=== PATIENT | male | born 1945 | race Caucasian/White ===

== ENCOUNTER → 2016-11-27 | Outpatient (CLI) | payer BC ==
[~2016-11-27] MED LIST: ASPI325T39 PO; ATOR-26 PO; CLOP1TAB15 PO; FAMO40TA6 PO; FINA5TAB PO; FLUT0.0529 NAE; ISOS60TA25 PO; LEVO25TA5 PO; LISI-725 PO; METO1TAB69 PO; NTRGSL/4 UT; TAMS0.4C59 PO; hctz PO
[2016-11-27 12:27] LABS: BASO % 0.3 %; BASO ABS # 0.02 K/uL (0-0.2); COMPLETE YES; EOS % 2.9 %; HEMATOCRIT 39.8 % (42-52); IG% 0.3 %; LYMPH % 27.3 %; LYMPH ABS # 1.62 K/uL (1.2-3.4); MEAN CELL VOLUME 85.2 fL (80-100); MEAN CORPUSCULAR HEMOGLOBIN 28.5 pg (25-34); MEAN CORPUSCULAR HGB CONC 33.4 g/dl (32-36); MEAN PLATELET VOLUME 10.3 fL (7.4-10.4); MONO % 10.1 %; NEUT % 59.1 %; PLATELET COUNT 168 K/uL (130-400); RED BLOOD COUNT 4.67 M/uL (4.7-6.1); WHITE BLOOD COUNT 5.93 K/uL (4.8-10.8)
[2016-11-27 12:59] LABS: BLOOD UREA NITROGEN 15 mg/dl (7-18); BUN/CREATININE RATIO 13.5 (10-20); CARBON DIOXIDE 29 mmol/L (21-32); CHLORIDE 106 mmol/L (98-107); GLUCOSE 114 mg/dl (70-99); POTASSIUM 3.6 mmol/L (3.5-5.1); SODIUM 143 mmol/L (136-145)
== END | disposition home or self-care (01) ==
LOC: C.LABBFT 07:59
PROVIDERS: ATTEND Internal Medicine Geriatric Medicine
DX: I10 Essential (primary) hypertension (principal); I42.9 Cardiomyopathy, unspecified; R73.9 Hyperglycemia, unspecified; E03.9 Hypothyroidism, unspecified; R25.1 Tremor, unspecified; I67.2 Cerebral atherosclerosis

== ENCOUNTER → 2016-12-11 | Outpatient (CLI) | payer BC ==
[~2016-12-11] MED LIST changes: +OPTIRAY 320 IV PRN
--- NOTE | 2016-12-11 13:46 | DIAGNOSTIC IMAGING REPORT ---
CT ABD/PELVIS IV AND ORAL CONT CLINICAL HISTORY: Generalized abdominal pain COMPARISON STUDY: 12/04/2013 TECHNIQUE: Following the IV administration of 92 mL of Optiray-320, CT scan of the abdomen and pelvis was performed from the lung bases to the proximal femurs. Images are reviewed in the axial, sagittal, and coronal planes. IV contrast was administered without complication. CT DOSE: 1087.15 mGycm FINDINGS: Lower chest: There is minor basilar atelectasis. Liver: There is hepatic steatosis. There are no focal masses identified. Gallbladder: Surgically after Spleen: Normal in size and attenuation. Pancreas: Unremarkable. Adrenal glands: Unremarkable. Kidneys: There is a 3 cm right renal cyst. Subcentimeter hypodensities in the left kidney likely represent additional cysts Bowel: There are no transition zones indicate bowel obstruction. The appendix appears normal. There is no acute diverticulitis. Peritoneum: There is no free air. There is no ascites. There are postsurgical changes of a ventral hernia repair. There are 2 anterior peritoneal nodules. The largest is located anterior to the transverse colon measuring 12 mm. These were not visualized the prior study and are indeterminate. Vasculature: There is a 3.6 cm abdominal aortic aneurysm which extends to just below the origin of the right renal artery. More distally, there is a second 34 mm infrarenal abdominal aortic aneurysm. 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 Adenopathy: None. Pelvic viscera: There is bladder wall thickening. There is significant prostatic enlargement (68 mm). Skeletal structures: No destructive osseous lesions are seen. IMPRESSION: 1. No evidence of bowel obstruction. No evidence of free air 2. Surgically absent gallbladder 3. Normal appendix 4. Abdominal aortic aneurysms, measuring up to 36 mm 5. Bladder wall thickening and prostate enlargement 6. Interval development of indeterminate peritoneal nodules, the largest of which measures 12 mm Electronically signed by: Best Lombardo M.D. 12/11/2016 1:44 PM Dictated Date/Time: 12/11/2016 1:36 PM
== END | disposition home or self-care (01) ==
LOC: C.CTS 13:14
PROVIDERS: ATTEND Internal Medicine Geriatric Medicine
DX: R10.9 Unspecified abdominal pain (principal)

== ENCOUNTER → 2016-12-12 | Outpatient (CLI) | payer BC ==
[~2016-12-12] MED LIST changes: -OPTIRAY 320 IV PRN
[2016-12-12 12:21] LABS: BLOOD UREA NITROGEN 15 mg/dl (7-18); BUN/CREATININE RATIO 13.2 (10-20); CALCIUM 8.8 mg/dl (8.5-10.1); CARBON DIOXIDE 27 mmol/L (21-32); CHLORIDE 103 mmol/L (98-107); GLUCOSE 115 mg/dl (70-99); POTASSIUM 3.6 mmol/L (3.5-5.1); SODIUM 140 mmol/L (136-145)
== END | disposition home or self-care (01) ==
LOC: C.LABBFT 08:09
PROVIDERS: ATTEND Internal Medicine Geriatric Medicine
DX: I10 Essential (primary) hypertension (principal)

== ENCOUNTER 2016-12-23 08:51 | Day surgery (SDC) | payer BC ==
[~2016-12-23] VITALS: Ht 182.9 cm; Wt 109.0 kg
[~2016-12-23 08:51] MED LIST changes: -LEVO25TA5 PO; -hctz PO
[2016-12-23 09:07] VITALS: BP 131/79; PULSE 67; TEMP 36.8; O2SAT 97; Ht 182.9 cm; Wt 109.0 kg
[2016-12-23] MEDS ORDERED: LEVO25TA5 PO (09:37)
[2016-12-23] MEDS ORDERED: hctz PO (09:38)
[2016-12-23 09:43] LABS: PLATELET COUNT 197 K/uL (130-400)
[2016-12-23 09:53] LABS: INR 1.1 (0.9-1.1); PROTHROMBIN TIME (PATIENT) 11.3 SECONDS (9.0-12.0)
--- NOTE | 2016-12-23 10:58 | Discharge Instructions ---
Discharge Instructions Procedure Procedure Date: Dec 23, 2016. Reason for visit: Peritoneum Mass. Discharge Discharge Date: Dec 23, 2016. Discharge Diagnosis: peritoneal nodule Instructions Activity Recommendations: No limitations Return to School/Work: no limitations Recommended Home Diet: Resume Previous Diet Provider Instructions: The patient was brought to ultrasound for fine-needle aspiration of a small ( 11mm) peritoneal nodule seen by CT. The nodule was not visualized by ultrasound. Attempting the aspiration under CT was discussed with the patient and he declined to proceed at this time. Allergies Coded Allergies: No Known Allergies (Verified , UNKNOWN, 12/23/16) Annette Burns Recommendations: Call your doctor if: * Temperature above 101 degrees * Pain not relieved by pain medicine ordered * There is increased drainage or redness from any incision * You have any unanswered questions or concerns. Your Doctors Instructions noted above were prepared by provider Trey Wiggins. Patient Signature Section: Patient Instructions Signature Page Joey Levine Patient (or Guardian) Signature/Date: I have read and understand the instructions given to me by my caregivers. Caregiver/RN/Doctor Signature/Date: The above-named patient and/or guardian has received patient instructions on this date. + Original Patient Signature Page (only) stays with chart. Please make copy for patient.
--- NOTE | 2016-12-23 11:21 | DIAGNOSTIC IMAGING REPORT ---
ULTRASOUND ABDOMEN LIMITED CLINICAL HISTORY: Peritoneal nodules. Ultrasound in preparation for fine-needle aspiration. COMPARISON STUDY: Abdominal CT dated 12/11/2016. FINDINGS: Real-time grayscale sonography of the ventral abdomen is performed in an attempt to localize the 11 mm peritoneal nodule seen by CT for fine-needle aspiration. The peritoneal implant could not be identified by ultrasound and aspiration was deferred. Fine-needle aspiration in CT was offered to the patient. After discussing the procedure with the patient a CT guided aspiration was declined. IMPRESSION: The peritoneal nodule was not visualized by ultrasound and the procedure was deferred. See above. Electronically signed by: Trey Wiggins M.D. 12/23/2016 11:19 AM Dictated Date/Time: 12/23/2016 11:16 AM
== END 2016-12-23 11:07 | disposition home or self-care (01) ==
LOC: C.ACU 08:51
PROVIDERS: ATTEND Internal Medicine Geriatric Medicine
DX: K66.8 Other specified disorders of peritoneum (principal); Z00.00 Encounter for general adult medical examination without abnormal findings

== ENCOUNTER → 2017-01-14 | Outpatient (CLI) | payer BC ==
[~2017-01-14] MED LIST changes: +LEVO25TA5 PO; +METO100T44 PO; -METO1TAB69 PO; +hctz PO
[2017-01-14 12:45] LABS: BASO % 0.5 %; BASO ABS # 0.03 K/uL (0-0.2); COMPLETE YES; EOS % 2.9 %; HEMATOCRIT 39.8 % (42-52); IG% 0.2 %; LYMPH ABS # 1.91 K/uL (1.2-3.4); MEAN CELL VOLUME 85.2 fL (80-100); MEAN CORPUSCULAR HEMOGLOBIN 29.3 pg (25-34); MEAN CORPUSCULAR HGB CONC 34.4 g/dl (32-36); MEAN PLATELET VOLUME 10.3 fL (7.4-10.4); MONO % 5.7 %; NEUT % 59.7 %; PLATELET COUNT 167 K/uL (130-400); RED BLOOD COUNT 4.67 M/uL (4.7-6.1); WHITE BLOOD COUNT 6.17 K/uL (4.8-10.8)
--- NOTE | 2017-01-21 13:01 | CODING QUERY MEDICAL NECESSITY ---
CQSUPPORTING DIAGNOSIS NEEDED A supporting diagnosis is required for the test/procedure performed on this patient in order for us to be reimbursed by the patient's insurance. Please provide a supporting diagnosis for the following test/procedure listed below next to the test name along with your signature. *If there is no additional diagnosis for this patient that would support the following test/procedure please document that below next to the test/procedure. Test(s)/Procedure(s) that require a supporting diagnosis: DOS 01/14/17 PROSTATE SPECIFIC TUMOR ANTIGEN CARCINOEMBRYONIC ANTIGEN Provider Signature: Date: Thank you Elda Zuleta Health Information Management Once completed, please kindly fax back to [phone] For questions please call [phone]
== END | disposition home or self-care (01) ==
LOC: C.LABBFT 08:22
PROVIDERS: ATTEND Internal Medicine Hematology & Oncology
DX: R19.01 Right upper quadrant abdominal swelling, mass and lump (principal)

== ENCOUNTER → 2017-01-24 | Outpatient (CLI) | payer BC ==
[~2017-01-24] MED LIST changes: +OPTIRAY 320 IV PRN
--- NOTE | 2017-01-24 14:01 | DIAGNOSTIC IMAGING REPORT ---
CT ABD/PELVIS IV AND ORAL CONT CLINICAL HISTORY: Abdominal pain. Abdominal mass. COMPARISON STUDY: 12/11/2016 TECHNIQUE: Following the IV administration of 118 mL of Optiray-320, CT scan of the abdomen and pelvis was performed from the lung bases to the proximal femurs. Images are reviewed in the axial, sagittal, and coronal planes. IV contrast was administered without complication. CT DOSE: FINDINGS: Lower chest: There are minor dependent atelectatic changes. There is a small pericardial effusion. Liver: There is mild hepatic steatosis. There is stable 5 mm hypodensity within the left hepatic lobe.. The portal vein appears patent. Gallbladder: Surgically absent Spleen: There are thin capsular calcifications. No splenic masses are visualized. Pancreas: Unremarkable. Adrenal glands: Unremarkable. Kidneys: No solid renal masses are visualized. There are bilateral renal cysts the largest of which is located on the right measuring 3 cm. Bowel: There are no transition zones indicate bowel obstruction. There is no evidence of acute diverticulitis. There are postsurgical changes of a ventral hernia repair. The appendix appears normal Peritoneum: There is no free air. There is no ascites. There is a persistent 12 mm anterior peritoneal nodule. A second 5 mm anterior peritoneal nodule is also stable. There is a 3.7 cm abdominal aortic aneurysm which extends to just below the right renal artery. There is a second 34 mm infrarenal abdominal aortic aneurysm. 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 Vasculature: The abdominal aorta is normal in course and caliber. Adenopathy: None. Pelvic viscera: The prostate is enlarged measuring 7 cm. Skeletal structures: No destructive osseous lesions are seen. IMPRESSION: 1. No evidence of bowel obstruction. No evidence of free air 2. Normal appendix 3. Infrarenal abdominal aortic aneurysms 4. Prostamegaly 5. Persistent indeterminate anterior peritoneal nodules, the largest of which measures 12 mm. Electronically signed by: Best Lombardo M.D. 01/24/2017 1:58 PM Dictated Date/Time: 01/24/2017 1:51 PM
--- NOTE | 2017-01-24 14:14 | DIAGNOSTIC IMAGING REPORT ---
CHEST CT WITH CONTRAST CT DOSE: 1673.50 mGy.cm HISTORY: Abnormal CT. Follow-up. ABDOMINAL MASS CR=1.1 ON 12/12/2016 TECHNIQUE: Multiaxial CT images of the chest were performed following the intravenous administration of contrast. COMPARISON: Chest CTA 12/04/2013. FINDINGS: The central airways are patent. Stable 4 mm nodule within the lingula on image 38. Therefore, this is considered to be benign. Stable 4 mm nodule within the right lower lobe. No new pulmonary nodules. No suspicious lytic or blastic osseous lesions. No mediastinal or hilar lymphadenopathy. No pleural or pericardial effusions. Normal caliber thoracic aorta. The central pulmonary arteries are patent. IMPRESSION: Stable subcentimeter pulmonary nodules which are considered to be benign. Otherwise, no acute process within the chest. Please refer to the dedicated abdominal CT performed same day for further evaluation of the abdominal structures. Electronically signed by: Daniel Rawls M.D. 01/24/2017 2:12 PM Dictated Date/Time: 01/24/2017 1:51 PM
== END | disposition home or self-care (01) ==
LOC: C.CTS 12:23
PROVIDERS: ATTEND Internal Medicine Hematology & Oncology
DX: R19.01 Right upper quadrant abdominal swelling, mass and lump (principal); I71.4 Abdominal aortic aneurysm, without rupture; N40.0 Benign prostatic hyperplasia without lower urinary tract symptoms

== ENCOUNTER → 2017-03-21 | Outpatient (CLI) | payer BC ==
[~2017-03-21] VITALS: Ht 182.9 cm; Wt 109.3 kg
[~2017-03-21] MED LIST changes: -OPTIRAY 320 IV PRN
[2017-03-21 14:28] VITALS: BP 138/78; PULSE 64; Ht 182.9 cm; Wt 109.3 kg
== END | disposition home or self-care (01) ==
LOC: C.NEUR 13:20
PROVIDERS: ATTEND Internal Medicine Pulmonary Disease
DX: G47.30 Sleep apnea, unspecified (principal)

== ENCOUNTER → 2017-05-13 | Outpatient (CLI) | payer BC ==
[~2017-05-13] MED LIST changes: -METO100T44 PO; +METO1TAB69 PO
[2017-05-13 12:26] LABS: BASO % 0.6 %; BASO ABS # 0.03 K/uL (0-0.2); COMPLETE YES; HEMATOCRIT 41.3 % (42-52); IG% 0.2 %; LYMPH % 28.3 %; LYMPH ABS # 1.51 K/uL (1.2-3.4); MEAN CELL VOLUME 87.9 fL (80-100); MEAN CORPUSCULAR HEMOGLOBIN 28.1 pg (25-34); MEAN PLATELET VOLUME 9.9 fL (7.4-10.4); MONO % 9.2 %; NEUT % 58.7 %; PLATELET COUNT 152 K/uL (130-400); WHITE BLOOD COUNT 5.34 K/uL (4.8-10.8)
[2017-05-13 12:41] LABS: ESTIMATED AVERAGE GLUCOSE 126 mg/dl; HA1C FLAG Normal (Normal)
[2017-05-13 15:02] LABS: BLOOD UREA NITROGEN 19 mg/dl (7-18); BUN/CREATININE RATIO 17.5 (10-20); CALCIUM 8.8 mg/dl (8.5-10.1); CARBON DIOXIDE 28 mmol/L (21-32); CHLORIDE 108 mmol/L (98-107); GLUCOSE 104 mg/dl (70-99); POTASSIUM 3.6 mmol/L (3.5-5.1); SODIUM 143 mmol/L (136-145)
[2017-05-13 15:14] LABS: ALKALINE PHOSPHATASE 68 U/L (45-117); ALT/SGPT 23 U/L (12-78); AST/SGOT 16 U/L (15-37); CHOLESTEROL 105 mg/dl (0-200); CHOLESTEROL/HDL RATIO 3.9; FERRITIN 106.5 ng/ml (8.0-388.0); HDL CHOLESTEROL 27 mg/dl; LDL CHOLESTEROL CALCULATED 40 mg/dl; TRIGLYCERIDES 188 mg/dl (0-150); VERY LOW DENSITY LIPOPROT CALC 38 mg/dl
--- NOTE | 2017-05-20 06:58 | CODING QUERY MEDICAL NECESSITY ---
CQSUPPORTING DIAGNOSIS NEEDED A supporting diagnosis is required for the test/procedure performed on this patient in order for us to be reimbursed by the patient's insurance. Please provide a supporting diagnosis for the following test/procedure listed below next to the test name along with your signature. *If there is no additional diagnosis for this patient that would support the following test/procedure please document that below next to the test/procedure. Test(s)/Procedure(s) that require a supporting diagnosis: DOS 05/13/17 VITAMIN D TEST VITAMIN B12 TEST Provider Signature: Date: Thank you Elda Zuleta Health Information Management Once completed, please kindly fax back to [phone] For questions please call [phone]
== END | disposition home or self-care (01) ==
LOC: C.LABBFT 07:36
PROVIDERS: ATTEND Internal Medicine Geriatric Medicine
DX: I10 Essential (primary) hypertension (principal); E78.5 Hyperlipidemia, unspecified; D64.9 Anemia, unspecified; R73.9 Hyperglycemia, unspecified; E03.9 Hypothyroidism, unspecified; G47.30 Sleep apnea, unspecified

== ENCOUNTER → 2017-06-20 | Outpatient (CLI) | payer BC ==
[~2017-06-20] VITALS: Ht 185.4 cm; Wt 109.7 kg
[2017-06-20 13:37] VITALS: BP 155/89; PULSE 70; Ht 185.4 cm; Wt 109.7 kg
== END | disposition home or self-care (01) ==
LOC: C.NEUR 13:18
PROVIDERS: ATTEND Internal Medicine Pulmonary Disease
DX: G47.30 Sleep apnea, unspecified (principal); I42.9 Cardiomyopathy, unspecified; I25.10 Atherosclerotic heart disease of native coronary artery without angina pectoris

== ENCOUNTER → 2017-07-11 | Outpatient (CLI) | payer BC ==
[~2017-07-11] MED LIST changes: +OPTIRAY 320 IV PRN
--- NOTE | 2017-07-11 12:05 | DIAGNOSTIC IMAGING REPORT ---
CT SCAN OF THE ABDOMEN AND PELVIS WITH IV CONTRAST CLINICAL HISTORY: Follow-up peritoneal nodules. COMPARISON STUDY: Abdominal CT scans dated 01/24/2017, 12/11/2016, and 12/04/2013. TECHNIQUE: Following the IV administration of 117 cc of Optiray 320, CT scan of the abdomen and pelvis is performed from the lung bases to the proximal femora. Images are reviewed in the axial, sagittal, and coronal planes. IV contrast was administered without complication. A dose lowering technique was utilized adhering to the principles of ALARA. CT DOSE: 1284.37 mGy.cm FINDINGS: Lung bases: The heart is normal in size and without pericardial effusion. The coronary arteries are densely calcified. The lung bases are clear. Liver: The contrast-enhanced liver is normal in size, contour, and attenuation. There is no intrahepatic biliary ductal dilatation. The hepatic veins and portal veins are patent. A subcentimeter hypodensity in the left lobe seen on image #74 likely represents a tiny cyst but is too small for definitive characterization. Gallbladder: Surgically absent noting clips in the gallbladder fossa. Spleen: Normal in size and attenuation. Capsular calcifications are noted. Pancreas: Unremarkable. Adrenal glands: Unremarkable. Kidneys: The contrast enhanced kidneys demonstrate mild cortical atrophy and are without hydronephrosis. The kidneys enhance symmetrically. A 3.4 cm cyst is noted in the interpolar right kidney. Additional subcentimeter cortical hypodensities also likely represent cysts but are too small for definitive characterization. Abdominal vasculature: There is advanced atherosclerotic calcification of the abdominal aorta. There are fusiform infrarenal aneurysms of the distal abdominal aorta. The more proximal aneurysm as seen on image #192 and measures 3.6 x 3.7 cm. The more distal aneurysm is seen just above the bifurcation and measures 3.7 x 3.4 cm. 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 There is ectasia of the left common iliac artery which measures up to 2.1 cm. Bowel: The small bowel and colon are normal in course and caliber. The appendix is well-visualized and normal. Peritoneum: There is no intraperitoneal free air or abdominal ascites. There is evidence of previous ventral hernia repair. A 1.2 cm low-attenuation nodule is again seen along the ventral aspect of the transverse colon on image #175. A 7 mm nodule is seen in the right upper quadrant anteriorly on image #122. These are similar to previous. No new nodules are identified. Lymphadenopathy: None. Pelvic viscera: The prostate gland is markedly enlarged and heterogeneous, measuring 6.7 cm in transverse diameter. There is median lobe hypertrophy. Although decompressed, the bladder wall appears thickened and trabeculated suggesting chronic outlet obstruction. The seminal vesicles are normal as imaged. Skeletal structures: The skeletal structures are osteopenic. There is mild lumbosacral spondylosis. No lytic or blastic lesions are seen. IMPRESSION: 1. Again seen are 2 nodular foci within the ventral peritoneum. These are unchanged from studies dated 12/11/2016 and 01/24/2017. These nodule are new from 12/04/2013. These nodules are similar in appearance to the patient's gallstones seen on 12/04/2013, and there was interval cholecystectomy between 12/04/2013 and 12/11/2016. These nodules likely represent dropped gallstones. 2. No new peritoneal nodules are identified. 3. No acute infectious or inflammatory findings are seen in the abdomen or pelvis. 4. Fusiform aneurysms of the abdominal aorta are similar to previous. 5. Marked prostatomegaly with evidence of chronic bladder outlet obstruction. 6. Additional findings as above. Electronically signed by: Trey Wiggins M.D. 07/11/2017 12:03 PM Dictated Date/Time: 07/11/2017 11:48 AM
== END | disposition home or self-care (01) ==
LOC: C.CTS 10:42
PROVIDERS: ATTEND Surgery
DX: K66.8 Other specified disorders of peritoneum (principal); Z90.49 Acquired absence of other specified parts of digestive tract; I71.4 Abdominal aortic aneurysm, without rupture; N40.0 Benign prostatic hyperplasia without lower urinary tract symptoms; N32.0 Bladder-neck obstruction

== ENCOUNTER → 2017-10-30 | Day surgery (SDC) | payer BC ==
[2017-10-23 11:21] VITALS: Ht 185.4 cm; Wt 108.2 kg
[~2017-10-30] VITALS: Ht 185.4 cm; Wt 108.2 kg
[~2017-10-30] MED LIST changes: -ASPI325T39 PO; +ASPI81TA28 PO; +ATROPINE SULFATE 0.1 MG/ML 5ML SYR IV PRN; +EpHEDrine SULFATE INJ 50 MG/ML AMP IV PRN; +FLM4 PO; -FLUT0.0529 NAE; +LIDOCAINE HCL 2% 2 ML VIAL (20MG/ML) ONE; -LISI-725 PO; +METO100T44 PO; -METO1TAB69 PO; +ONDANSETRON INJ 2 MG/ML 2 ML VIAL IV PRN; -OPTIRAY 320 IV PRN; +PROPOFOL IV EMULSION 10 MG/ML 20 ML VIAL IV ONE; -TAMS0.4C59 PO; -hctz PO
--- NOTE | 2017-10-30 08:30 | Endo History and Physical ---
History & Physical Date of Service: Oct 30, 2017. Chief Complaint: gastric tumor Referring Physician: Dr. Valeriano Elizabeth History of Present Illness Patient has a history of a small benign-appearing gastric polyp which was resected several years ago presenting for surveillance today. He denies having any specific symptoms or problems. Past Medical History Angioplasty/Stent, ASHD, High Cholesterol, Sleep Apnea, Heart Disease, Hypertension, Kidney Disease, [place] Past Surgical History Hx Cardiac Surgery: Yes (1 STENT PLACED WITH HEART CATH) Hx Internal Defibrillator: No Hx Pacemaker: No Hx Abdominal Surgery: Yes (LAP CHOLEY, [facility]. HERNIA REPAIR) Hx Post-Op Nausea and Vomiting: No Hx Cancer Surgery: No Hx Thoracic Surgery: No Hx Orthopedic: No Hx Urinary Tract Surgery: No Family History None Social History Smoking Status: Current Every Day Smoker Hx Substance Use: No Hx Alcohol Use: No Allergies Coded Allergies: No Known Allergies (Verified , UNKNOWN, 10/23/17) Current Medications Reported Home Medications Medications Dose Route/Sig Max Daily Dose Days Date Category Aspirin Ec (Aspirin) 81 Mg Tab 81 Mg PO QAM 10/23/17 Reported Tamsulosin HCl 0.4 Mg Cap 0.4 Cap PO HS 10/23/17 Reported Levothyroxine Sodium 25 Mcg Tab 25 Mcg PO QPM 12/23/16 Reported Plavix (Clopidogrel Bisulfate) 75 Mg Tab 75 Mg PO Q2D 07/21/14 Reported Nitrostat (Nitroglycerin) 0.4 Mg Tab 0.4 Mg UT PRN 12/04/13 Reported Toprol-Xl (Metoprolol Succinate) 100 Mg Tabcr 100 Mg PO QPM 12/04/13 Reported Toprol-Xl (Metoprolol Succinate) 100 Mg Tabcr 150 Mg PO QAM 12/04/13 Reported Imdur Ext Rel (Isosorbide Mononitrate) 60 Mg Ertab 90 Mg PO QAM 12/04/13 Reported Pepcid (Famotidine) 40 Mg Tab 40 Mg PO QPM 06/14/10 Reported Lipitor (Atorvastatin Calcium) 80 Mg Tab 80 Mg PO QPM 12/11/08 Reported Proscar (Finasteride) 5 Mg Tab 5 Mg PO QAM 12/11/08 Reported Vital Signs Weight (Kilograms): 108.18 Height (Feet): 6 Height (Inches): 1 Date Time Temp Pulse Resp B/P (MAP) Pulse Ox O2 Delivery O2 Flow Rate FiO2 10/30/17 08:14 36.1 63 20 162/107 (125) 95 Room Air Physical Exam General Appearance: no apparent distress Respiratory/Chest: Auscultation: breath sounds normal Cardiovascular: Heart Auscultation: RRR Abdomen: Inspection & Palpation: soft Assessment and Plan Patient for upper endoscopy today to evaluate a small gastric mass seen on prior examinations. If unchanged today then long-term follow-up can be discontinued.
--- NOTE | 2017-10-30 08:54 | Discharge Instructions ---
Endoscopy Patient Instructions Date / Procedure(s) Performed Oct 30, 2017. EGD Allergy Information Coded Allergies: No Known Allergies (Verified , UNKNOWN, 10/23/17) Discharge Date / Findings Oct 30, 2017. Normal upper endoscopy Medication Instructions Stopped Medication(s): Stopped Baby ASA 5 days ago,Plavix stopped on Friday Reported Home Medications Medications Dose Route/Sig Max Daily Dose Days Date Category Aspirin Ec (Aspirin) 81 Mg Tab 81 Mg PO QAM 10/23/17 Reported Tamsulosin HCl 0.4 Mg Cap 0.4 Cap PO HS 10/23/17 Reported Levothyroxine Sodium 25 Mcg Tab 25 Mcg PO QPM 12/23/16 Reported Plavix (Clopidogrel Bisulfate) 75 Mg Tab 75 Mg PO Q2D 07/21/14 Reported Nitrostat (Nitroglycerin) 0.4 Mg Tab 0.4 Mg UT PRN 12/04/13 Reported Toprol-Xl (Metoprolol Succinate) 100 Mg Tabcr 100 Mg PO QPM 12/04/13 Reported Toprol-Xl (Metoprolol Succinate) 100 Mg Tabcr 150 Mg PO QAM 12/04/13 Reported Imdur Ext Rel (Isosorbide Mononitrate) 60 Mg Ertab 90 Mg PO QAM 12/04/13 Reported Pepcid (Famotidine) 40 Mg Tab 40 Mg PO QPM 06/14/10 Reported Lipitor (Atorvastatin Calcium) 80 Mg Tab 80 Mg PO QPM 12/11/08 Reported Proscar (Finasteride) 5 Mg Tab 5 Mg PO QAM 12/11/08 Reported Provider Instructions Activity Restrictions - No exercising or heavy lifting for 24 hours. - Do not drink alcohol the day of the procedure. - Do not drive a car or operate machinery until the day after the procedure. - Do not make any important decisions or sign important papers in 24 hours after the procedure. Following Day: - Return to full activity which may include returning to work/school. Diet Start your diet with liquids and light foods (jello, soup, juice, toast). Then eat your usual diet if not nauseated. Treatment For Common After Affects For mild abdominal pain, bloating, or excessive gas: - Rest - Eat lightly - Lie on right side Follow-Up Information Follow-up with Dr. Valeriano Elizabeth as scheduled No repeat upper endoscopy needed for the present time Anesthesia Information What You Should Know You have had a procedure that required some medicine to reduce anxiety and discomfort. This treatment is called moderate sedation. After receiving the treatment, you may be sleepy, but you will be able to breathe on your own. The effects of the treatment may last for several hours. Follow these instructions along with Activity/Diet recommendations noted above: * Do NOT do anything where dizziness or clumsiness would be dangerous. * Rest quietly at home today, then you can be up and about tomorrow. * Have a responsible person stay with you the rest of today. * You may have had an I.V. today. If so, you may take the dressing off later today. Recommendations Call your doctor if: * Trouble breathing * Continuous vomiting for more than 24 hours * Temperature above 101 degrees * Severe abdominal pain or bloating * Pain not relieved by pain medicine ordered * There is increased drainage or redness from any incision * A large amount of rectal bleeding greater than 2-3 tablespoons. (If you had a polyp/s removed or have hemorrhoids, a small amount of blood - from the rectum is to be expected.) * You have any unanswered questions or concerns. IN THE EVENT OF A SERIOUS EMERGENCY, GO TO THE NEAREST EMERGENCY ROOM Your discharge instructions were prepared by provider Raysa Wasserman. Patient Instructions Signature Page Joey Levine Patient (or Guardian) Signature/Date: I have read and understand the instructions given to me by my caregivers. Caregiver/RN/Doctor Signature/Date: The above-named patient and/or guardian has received patient instructions on this date. + Original Patient Signature Page (only) stays with chart. Please make copy for patient.
--- NOTE | 2017-10-30 08:57 | GI REPORT ---
Procedure Date: 10/30/2017 8:30 AM Procedure: Upper GI endoscopy Indications: Follow-up of gastric tumor of uncertain behavior Medicines: Monitored Anesthesia Care Complications: No immediate complications. Estimated blood loss: Minimal. Estimated Blood Loss: Estimated blood loss was minimal. Procedure: Pre-Anesthesia Assessment: - Prior to the procedure, a History and Physical was performed, and patient medications, allergies and sensitivities were reviewed. The patient's tolerance of previous anesthesia was reviewed. - The risks and benefits of the procedure and the sedation options and risks were discussed with the patient. All questions were answered and informed consent was obtained. - Patient identification and proposed procedure were verified prior to the procedure by the physician, the nurse and the microwave engineer. The procedure was verified in the procedure room. - Pre-procedure physical examination revealed no contraindications to sedation. - ASA Grade Assessment: IV - A patient with severe systemic disease that is a constant threat to life. - After reviewing the risks and benefits, the patient was deemed in satisfactory condition to undergo the procedure. - The anesthesia plan was to use monitored anesthesia care (MAC). - Immediately prior to administration of medications, the patient was re-assessed for adequacy to receive sedatives. - The heart rate, respiratory rate, oxygen saturations, blood pressure, adequacy of pulmonary ventilation, and response to care were monitored throughout the procedure. - The physical status of the patient was re-assessed after the procedure. After obtaining informed consent, the endoscope was passed under direct vision. Throughout the procedure, the patient's blood pressure, pulse, and oxygen saturations were monitored continuously. The scope was introduced through the mouth, and advanced to the third part of duodenum. The upper GI endoscopy was accomplished without difficulty. The patient tolerated the procedure well. Findings: The examined esophagus was normal. The Z-line was regular and was found 39 cm from the incisors. The entire examined stomach was normal. The examined duodenum was normal. Impression: - Normal esophagus. - Z-line regular, 39 cm from the incisors. - Normal stomach. - Normal examined duodenum. - No specimens collected. Recommendation: - Discharge patient to home (ambulatory). - Advance diet as tolerated today. - Return to my office PRN. - Repeat upper endoscopy is not recommended for surveillance. Raysa Wasserman D.O. Raysa Wasserman, 10/30/2017 8:57:36 AM This report has been signed electronically. Note Initiated On: 10/30/2017 8:30 AM I attest to the content of the Intraoperative Record and orders documented therein, exceptions below
[2017-10-30 09:18] VITALS: BP 115/67; PULSE 56; O2SAT 96
--- NOTE | 2017-10-30 09:29 | Anesthesiology Progress Note ---
Anesthesia Post Op Note Date & Time Oct 30, 2017 at 09:29 Vital Signs Pain Intensity: 0 Vital Signs Past 12 Hours Date Time Temp Pulse Resp B/P (MAP) Pulse Ox O2 Delivery O2 Flow Rate FiO2 10/30/17 09:18 56 20 115/67 (83) 96 Room Air 10/30/17 09:09 55 20 107/63 (78) 94 Room Air 10/30/17 08:59 58 18 96/53 (67) 92 Room Air 10/30/17 08:14 36.1 63 20 162/107 (125) 95 Room Air Notes Mental Status: alert / awake / arousable, participated in evaluation Pt Amnestic to Procedure: Yes Nausea / Vomiting: adequately controlled Pain: adequately controlled Airway Patency, RR, SpO2: stable & adequate BP & HR: stable & adequate Hydration State: stable & adequate Anesthetic Complications: no major complications apparent
== END | disposition home or self-care (01) ==
LOC: C.GI 07:50
PROVIDERS: ATTEND Internal Medicine Gastroenterology
DX: Z09 Encounter for follow-up examination after completed treatment for conditions other than malignant neoplasm (principal); D37.1 Neoplasm of uncertain behavior of stomach; I25.10 Atherosclerotic heart disease of native coronary artery without angina pectoris; K21.9 Gastro-esophageal reflux disease without esophagitis; E03.9 Hypothyroidism, unspecified; I11.9 Hypertensive heart disease without heart failure; N28.9 Disorder of kidney and ureter, unspecified; F17.200 Nicotine dependence, unspecified, uncomplicated; E78.5 Hyperlipidemia, unspecified; I25.2 Old myocardial infarction; Z79.82 Long term (current) use of aspirin; Z98.61 Coronary angioplasty status; Z90.49 Acquired absence of other specified parts of digestive tract

== ENCOUNTER → 2017-12-04 | Outpatient (CLI) | payer BC ==
[~2017-12-04] MED LIST changes: -ATROPINE SULFATE 0.1 MG/ML 5ML SYR IV PRN; -EpHEDrine SULFATE INJ 50 MG/ML AMP IV PRN; -LIDOCAINE HCL 2% 2 ML VIAL (20MG/ML) ONE; -ONDANSETRON INJ 2 MG/ML 2 ML VIAL IV PRN; -PROPOFOL IV EMULSION 10 MG/ML 20 ML VIAL IV ONE
[2017-12-04 12:29] LABS: BASO % 0.5 %; BASO ABS # 0.03 K/uL (0-0.2); EOS ABS # 0.11 K/uL (0-0.5); HEMATOCRIT 41.2 % (42-52); HEMOGLOBIN 13.7 g/dL (14.0-18.0); IG# 0.02 K/uL (0.00-0.02); LYMPH % 32.7 %; LYMPH ABS # 1.83 K/uL (1.2-3.4); MEAN CORPUSCULAR HEMOGLOBIN 28.6 pg (25-34); MEAN CORPUSCULAR HGB CONC 33.3 g/dl (32-36); MONO % 10.2 %; MONO ABS # 0.57 K/uL (0.11-0.59); NEUT % 54.2 %; NEUT ABS # 3.03 K/uL (1.4-6.5); PLATELET COUNT 156 K/uL (130-400); RED CELL DISTRIBUTION WIDTH CV 13.8 % (11.5-14.5); RED CELL DISTRIBUTION WIDTH SD 42.8 fL (36.4-46.3); WHITE BLOOD COUNT 5.59 K/uL (4.8-10.8)
[2017-12-04 12:54] LABS: BLOOD UREA NITROGEN 15 mg/dl (7-18); CREATININE 0.95 mg/dl (0.60-1.40); GLUCOSE 104 mg/dl (70-99)
[2017-12-04 12:55] LABS: CALCIUM 8.9 mg/dl (8.5-10.1); CARBON DIOXIDE 32 mmol/L (21-32); POTASSIUM 3.9 mmol/L (3.5-5.1); SODIUM 141 mmol/L (136-145)
== END | disposition home or self-care (01) ==
LOC: C.LABBFT 07:35
PROVIDERS: ATTEND Internal Medicine Geriatric Medicine
DX: I10 Essential (primary) hypertension (principal); R73.9 Hyperglycemia, unspecified; D64.9 Anemia, unspecified; E03.9 Hypothyroidism, unspecified

== ENCOUNTER → 2017-12-23 | Outpatient (CLI) | payer BC ==
[~2017-12-23] VITALS: Ht 185.4 cm; Wt 108.0 kg
[2017-12-23 15:14] VITALS: BP 138/76; PULSE 62; Ht 185.4 cm; Wt 108.0 kg
== END | disposition home or self-care (01) ==
LOC: C.NEUR 12:50
PROVIDERS: ATTEND Physician Assistant Medical
DX: G47.30 Sleep apnea, unspecified (principal); R09.81 Nasal congestion; I10 Essential (primary) hypertension; I25.10 Atherosclerotic heart disease of native coronary artery without angina pectoris

== ENCOUNTER → 2018-02-10 | Outpatient (CLI) | payer BC | END | disposition home or self-care (01) | LOC: C.LABBFT 08:39 | PROVIDERS: ATTEND Urology | DX: N40.0 Benign prostatic hyperplasia without lower urinary tract symptoms (principal) ==

== ENCOUNTER 2020-09-06 17:37 | Observation (INO) ==
--- NOTE | 2020-09-06 18:00 | Emergency Department Note ---
Impression & Plan Pulmonary emboli ED Provider Note NAME: ACE QUARLES AGE: 75 SEX: M : 1945 ARRIVES VIA: Walk-In INFORMANT: Patient, ED PROVIDER(S): Raffaele Miller MD Chief Complaint: Concern for blood clots HPI: Patient was referred due to concern for blood clot seen on an outpatient CAT scan. The patient states that he typically gets these for warm surveillance of a history of aneurysm. The patient was unsure as whether not the aneurysm was okay. The patient does follow with his PCP for this. Patient denies any recent surgeries or procedures. The patient states he has been fairly mobile at home. The patient does have a chronic history of tremors and does take Sinemet for his history of Parkinson's. The patient denies any recent trauma, prolonged car or plane travel. The patient does occasionally smoke a pipe. Patient is not smoked in approximate 2 weeks. The patient does not take any current blood thinning medications with the exception of aspirin and Plavix. ROS: See HPI for pertinent positives and negatives. A total of 10 systems were reviewed and otherwise negative. Past medical history: See below Surgical history: See below Social history: See below Physical Exam: GENERAL: Wearing glasses and a mask. NAD, non-toxic. EYE EXAM: Normal conjunctiva. PERRL, no anisocoria and EOM's grossly intact w/o pain. NECK: Supple, no nuchal rigidity, no adenopathy, non-tender. No signs of meni ngismus. LUNGS: Clear to auscultation. Normal chest wall mechanics. HEART: NSR, no MRG. ABDOMEN: Abdomen soft, non-tender, normo-active bowel sounds, no masses, no rebound or guarding. BACK: No CVA TTP. SKIN: No rashes and no bruising. UPPER EXTREMITIES: Upper extremities are grossly normal. LOWER EXTREMITIES: Grossly normal, no edema. Negative Homans' sign bilaterally. NEURO EXAM: A&O x3, cranial nerves II-XII grossly intact, normal speech, moves all 4 extremities on command w/o issue. Differential diagnoses: Reactive airway disease, pneumonia, pneumothorax, COPD, CHF, infections, cardiac ischemia, pulmonary embolism, musculoskeletal, gastrointestinal, as well as other pathologies. Course: Patient was seen and evaluated the bedside. Full history physical exam was performed. EKG: Indication: PEs Normal sinus rhythm with first-degree AV block, prolonged AR at 204, normal QRS and axis, no obvious ST changes. No significant change from December 05, 2013 comparison EKG. Imaging Studies: Radiology results as stated below per my review in the radiologist's interpretation: CT ANGIOGRAM OF THE ABDOMEN AND PELVIS CLINICAL HISTORY: Abdominal aortic aneurysm. COMPARISON STUDY: CT angiogram of the abdomen and pelvis dated 02/23/2020. TECHNIQUE: Following the IV administration of 120 cc of Optiray 320, CT angiogram of the abdomen and pelvis was performed from the lung bases the p roximal femora. Images are reviewed in the axial, sagittal, and coronal planes. 3-D MIPS images are created and assessed. IV contrast was administered without complication. A dose lowering technique was utilized adhering to the principles of ALARA. CT DOSE: 1437.91 mGycm FINDINGS: Lower chest: The heart is top normal in size and without pericardial effusion. The coronary arteries are densely calcified. The lung bases are clear noting mild bibasilar scarring/atelectasis. There are pulmonary emboli within the right middle and right lower lobe pulmonary arteries which extends into segmental and subsegmental branches. There is a small hiatal hernia. Liver: The contrast-enhanced liver is normal in size, contour, and attenuation. There is no intrahepatic or ductal dilatation. The hepatic veins and portal veins are patent. Gallbladder: Surgically absent noting clips in the gallbladder fossa. Spleen: Normal in size and attenuation. Capsular calcification is similar to previous. Pancreas: Unremarkable. Adrenal glands: Unremarkable. Kidneys: The contrast enhanced kidneys demonstrate cortical atrophy and are without hydronephrosis. The kidneys enhance symmetrically. A 3.2 cm cyst is noted on the right. Additional subcentimeter cortical hypodensities also likely represent cysts but are too small for definitive characterization. Abdominal aorta and iliac arteries: There is advanced atherosclerotic calcification of the abdominal aorta. A bilobed infrarenal abdominal aortic aneurysm is again noted. The proximal component of the aneurysm measures 4.0 x 4.2 cm (AP x transverse) and the distal component of the aneurysm measures 4.3 x 4.4 cm. The aneurysm extends approximately 8 cm in craniocaudal length. The aneurysm originates just below the takeoff of the right renal artery. The abdominal aorta is patent. No dissection is seen. Aneurysm of the right common iliac artery measures 3.2 cm. There is mild aneurysmal dilatation of the left common iliac artery which measures up to 2.2 cm. The iliac arteries are patent bilaterally, as are the common femoral arteries. Major branches of the abdominal aorta: The celiac trunk, superior mesenteric, and inferior mesenteric arteries are widely patent. Hepatic arterial anatomy is conventional. The splenic artery is patent.Single bilateral renal arteries are patent. Bowel: There is mild colonic diverticulosis without CT evidence of acute diverticulitis. No bowel obstruction is identified. Mild fecal retention is seen throughout the colon. The appendix is well-visualized and normal. Peritoneum: There is no intraperitoneal free air or abdominal ascites. There is a fat-containing umbilical hernia with evidence of previous ventral hernia repair. Lymphadenopathy: None. Pelvic viscera: The prostate gland is markedly enlarged and heterogeneous noting median lobe hypertrophy. The bladder is decompressed. The bladder wall is thickened and trabeculated indicating chronic outlet obstruction. Skeletal structures: The skeletal structures are osteopenic. There is mild lumbosacral spondylosis. Sclerotic change is noted in the sacroiliac joints. No lytic or blastic lesions are seen. IMPRESSION: 1. Right lower lobe pulmonary emboli as above. 2. A bilobed infrarenal abdominal aortic aneurysm has not significantly changed in appearance as compared to 02/23/2020. The largest component measures up to 4.4 cm in diameter. 3. Bilateral common iliac artery aneurysms as above. 4. The major branches of the abdominal aorta are patent. 5. Marked prostatomegaly with evidence of chronic bladder outlet obstruction. 6. Additional findings as above. ACT 112: Negative or not required by law. Electronically signed by: Trey Wiggins M.D. 09/06/2020 3:56 PM Dictated: 09/06/20 1541 Transcribed: 09/06/20 1541 Cardiac monitoring: An order was placed for continuous cardiac monitoring. The monitor shows a rate of 80 with sinus rhythm. MDM: Patient does present due to concern for outpatient CT that showed the possi bility PEs. I did review this as it was obtained prior to arrival. Patient does have right lower lobe PEs. Blood work was obtained which is unremarkable. The patient is currently asymptomatic. I did use a PE severity index and modified or simplified PE severity index both of which place the patient at moderate to high risk thus I believe the patient cannot be discharged on anticoagulant therapy at this time. Heparin was started. I did speak the on- call hospitalist and the patient was admitted to Dr. Lewis. Critical Care: I have personally spent 46 minutes of critical care time in direct management of this patient. This includes bedside care, interpretation of diagnostic studies, and testing, discussion with consultants, patient, and family members, and other require inpatient management activities. This 46 minutes is in excess of all separately billable procedures. Past Med/Surg History Medical History (Updated 09/07/20 @ 12:27 by Raffaele Miller MD) Abdominal aortic aneurysm 35 to 39 mm in diameter Acute pancreatitis Anemia Benign prostate hyperplasia CAD (coronary artery disease) Cardiomyopathy EF=35-40% Cerebral atherosclerosis History of myocardial infarction HTN (hypertension) Hypothyroidism Lumbar radiculopathy Myocardial infarct Parkinsonism Rhinitis Severe sleep apnea Tremor Surgical History S/P cholecystectomy 2014 S/P colonoscopy S/P coronary artery stent placement (2008) 2008- first diagonal S/P tonsillectomy Family History Father Acute myocardial infarction Hypertension Mother Valvular heart disease Hypertension Denies family history of Ovarian cancer Prostate cancer Breast cancer Lung cancer Colorectal cancer Social History Smoking Status: Current every day smoker Tobacco Type: Pipe Age Started Using Tobacco: 28; Second Hand Exposure: No; Do You Dip or Chew Tobacco: No; Hx Alcohol Use: No Hx Substance Use: No Preferred Language: Citizen Of [place] Communication Ability: Effective Visual Impairment: Limited Hearing Ability: Hard of Hearing 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 Beliefs That Will Affect Care: None marital status: Current Living Situation: Spouse current occupational status: retired Other Information That Helps Us Care for You: No Feels Safe at Home: Yes Safety Concerns: Feels Safe At This Time Childhood Exposure to Second-Hand Smoke: Yes caffeine: No Dental Care, Regularly: Yes Physical Activity Frequency: 1-2 Times per Week Seatbelt Use: always Sunscreen Use: Yes Assistive Devices: Glasses Allergies Allergies Allergy/AdvReac Type Severity Reaction Status Date / Time No Known Drug Allergies Allergy Unknown Verified 09/06/20 20:05 Home Meds Home Medications Medication Instructions Recorded Confirmed triamcinolone acetonide 0.1 % 1 appln TOP BID PRN 01/21/20 09/06/20 topical ointment azelastine 137 mcg (0.1 %) nasal 2 sprays INTNAS ONCE PRN ml 02/29/20 09/06/20 spray aerosol Previous Rx's Medication Instructions Recorded aspirin 81 mg tablet,delayed 81 mg PO DAILY #90 tab 04/16/19 release mecobalamin (vitamin B12) 1,000 1,000 mcg SL DAILY #30 tab 04/16/19 mcg disintegrating tablet,sublingual atorvastatin 80 mg tablet 80 mg PO DAILY #90 tab 12/23/19 clopidogrel 75 mg tablet 75 mg PO .COMPLEX #45 tab 03/01/20 isosorbide mononitrate 60 mg 90 mg PO DAILY #135 tab 03/01/20 tablet,extended release 24 hr levothyroxine 25 mcg tablet 25 mcg PO DAILY #90 tab 03/01/20 lisinopril 20 mg tablet 20 mg PO DAILY #90 tab 03/13/20 pantoprazole 20 mg tablet,delayed 20 mg PO DAILY #90 tab 03/21/20 release finasteride 5 mg tablet 5 mg PO DAILY #90 tab 05/24/20 tamsulosin 0.4 mg capsule 0.4 mg PO DAILY #90 cap 05/24/20 carbidopa 37.5 mg-levodopa 150 1 tab PO .COMPLEX 90 Days #450 tab 07/04/20 mg-entacapone 200 mg tablet metoprolol succinate 100 mg See Rx Instructions PO .COMPLEX 08/21/20 tablet,extended release 24 hr #135 tab nitroglycerin 0.4 mg sublingual 0.4 mg SL Q5M PRN #30 tab 08/21/20 tablet Results & Data (ED) Vital Signs Vital Signs - 24 hr 09/06/20 17:42 09/06/20 18:06 09/06/20 18:21 Temperature 36.8 C Temperature Source Oral Pulse Rate 80 69 Pulse Rate [Left] 68 Pulse Rate from SpO2 Sensor Respiratory Rate 16 20 22 Respiratory Effort / Characteristics Non-Labored Spontaneous Respiratory Depth Normal Blood Pressure 164/111 H Blood Pressure [Right Arm] 139/95 Blood Pressure Mean 128 Blood Pressure Mean [Right Arm] 109 Blood Pressure Position [Right Arm] Lying Pulse Oximetry 94 95 95 Oxygen Delivery Method Room Air Room Air Room Air Sepsis Recent Fever Within 48 Hours No Sepsis New/Unexplained Change in Mental Status N/A Sepsis Action Taken by Nursing No Action Required 09/06/20 20:27 09/06/20 20:30 Temperature Temperature Source Pulse Rate 67 64 Pulse Rate [Left] Pulse Rate from SpO2 Sensor 67 63 Respiratory Rate 27 H 23 Respiratory Effort / Characteristics Respiratory Depth Blood Pressure 170/91 H 157/82 H Blood Pressure [Right Arm] Blood Pressure Mean 113 99 Blood Pressure Mean [Right Arm] Blood Pressure Position [Right Arm] Pulse Oximetry 98 97 Oxygen Delivery Method Sepsis Recent Fever Within 48 Hours Sepsis New/Unexplained Change in Mental Status Sepsis Action Taken by [facility] Medications Current Medication List: was personally reviewed by me Laboratory Data Result diagrams: 09/06/20 18:15 09/06/20 18:15 Lab Results 09/06/20 09/06/20 09/06/20 Range/Units 18:15 18:15 18:15 WBC 7.57 (4.8-10.8) K/uL RBC 4.50 L (4.7-6.1) M/uL Hgb 13.2 L (14.0-18.0) g/dL Hct 39.4 L (42-52) % MCV 87.6 (80-100) fL MCH 29.3 (25-34) pg MCHC 33.5 (32-36) g/dL RDW Std Deviation 42.1 (36.4-46.3) fL RDW Coeff of Brett 13.2 (11.5-14.5) % Plt Count 157 (130-400) K/uL MPV 9.4 (7.4-10.4) fL Immature Gran % (Auto) 0.1 % Neut % (Auto) 61.6 % Lymph % (Auto) 26.2 % [place] % (Auto) 9.8 % Eos % (Auto) 2.0 % Baso % (Auto) 0.3 % Neut # (Auto) 4.67 (1.4-6.5) K/uL Lymph # (Auto) 1.98 (1.2-3.4) K/uL [place] # (Auto) 0.74 H (0.11-0.59) K/uL Eos # (Auto) 0.15 (0-0.5) K/uL Baso # (Auto) 0.02 (0-0.2) K/uL Immature Gran # (Auto) 0.01 (0.00-0.02) K/uL PT 11.3 (9.0-12.0) Seconds INR 1.1 (0.9-1.1) Sodium 143 (136-145) mmol/L Potassium 3.7 (3.5-5.1) mmol/L Chloride 108 H (98-107) mmol/L Carbon Dioxide 29 (21-32) mmol/L Anion Gap 6.0 (3-11) BUN 20 H (7-18) mg/dl Creatinine 1.30 (0.6-1.4) mg/dl Est Cr Clr Drug Dosing 59.8 ml/min Est GFR ( Amer) 61.0 Est GFR (Non-Af Amer) 52.6 BUN/Creatinine Ratio 15.1 (10-20) Glucose 107 H (70-99) mg/dl Calcium 8.9 (8.5-10.1) mg/dl Total Bilirubin 0.6 (0.2-1) mg/dl AST 14 L (15-37) U/L ALT 8 L (12-78) U/L Alkaline Phosphatase 78 (45-117) U/L Troponin I 0.045 (0-0.045) ng/ml Total Protein 6.8 (6.4-8.2) gm/dl Albumin 3.3 L (3.4-5.0) gm/dl Globulin 3.5 (2.5-4.0) gm/dl Albumin/Globulin Ratio 0.9 (0.9-2) TSH 3.170 (0.300-4.500) uIu/ml SARS-CoV-2 Ag (Rapid) (Negative) 09/06/20 Range/Units 19:30 WBC (4.8-10.8) K/uL RBC (4.7-6.1) M/uL Hgb (14.0-18.0) g/dL Hct (42-52) % MCV (80-100) fL MCH (25-34) pg MCHC (32-36) g/dL RDW Std Deviation (36.4-46.3) fL RDW Coeff of Brett (11.5-14.5) % Plt Count (130-400) K/uL MPV (7.4-10.4) fL Immature Gran % (Auto) % Neut % (Auto) % Lymph % (Auto) % [place] % (Auto) % Eos % (Auto) % Baso % (Auto) % Neut # (Auto) (1.4-6.5) K/uL Lymph # (Auto) (1.2-3.4) K/uL [place] # (Auto) (0.11-0.59) K/uL Eos # (Auto) (0-0.5) K/uL Baso # (Auto) (0-0.2) K/uL Immature Gran # (Auto) (0.00-0.02) K/uL PT (9.0-12.0) Seconds INR (0.9-1.1) Sodium (136-145) mmol/L Potassium (3.5-5.1) mmol/L Chloride (98-107) mmol/L Carbon Dioxide (21-32) mmol/L Anion Gap (3-11) BUN (7-18) mg/dl Creatinine (0.6-1.4) mg/dl Est Cr Clr Drug Dosing ml/min Est GFR ( Amer) Est GFR (Non-Af Amer) BUN/Creatinine Ratio (10-20) Glucose (70-99) mg/dl Calcium (8.5-10.1) mg/dl Total Bilirubin (0.2-1) mg/dl AST (15-37) U/L ALT (12-78) U/L Alkaline Phosphatase (45-117) U/L Troponin I (0-0.045) ng/ml Total Protein (6.4-8.2) gm/dl Albumin (3.4-5.0) gm/dl Globulin (2.5-4.0) gm/dl Albumin/Globulin Ratio (0.9-2) TSH (0.300-4.500) uIu/ml SARS-CoV-2 Ag (Rapid) Negative (Negative) Administered Medications Aspirin (Aspirin 81 Mg Ectab) 81 mg PO DAILY [facility] Stop: 10/07/20 08:59 Last Admin: 09/07/20 08:04 Dose: 81 mg Documented by: [id number] Atorvastatin Calcium (Atorvastatin 40 Mg Tab) 80 mg PO DAILY [facility] Stop: 10/07/20 08:59 Last Admin: 09/07/20 08:04 Dose: 80 mg Documented by: [id number] Carbidopa/Levodopa (Carbidopa/Levodopa 25/100mg Tab) 1.5 tab PO DAILY@040 0,1000,1600 [facility] Stop: 10/07/20 03:59 Last Admin: 09/07/20 10:10 Dose: 1.5 tab Documented by: [id number] Admin: 09/07/20 03:03 Dose: 1.5 tab Documented by: [id number] Cyanocobalamin (Cyanocobalamin (Vitamin B-12) 2,500 Mcg Tab.Subl) 1,250 mcg SL DAILY [facility] Stop: 10/07/20 08:59 Last Admin: 09/07/20 08:04 Dose: 1,250 mcg Documented by: [id number] Entacapone (Entacapone 200 Mg Tab) 200 mg PO DAILY@0400,1000,1600 [facility] Stop: 10/07/20 03:59 Last Admin: 09/07/20 10:10 Dose: 200 mg Documented by: [id number] Admin: 09/07/20 03:03 Dose: 200 mg Documented by: [id number] Finasteride (Finasteride 5 Mg Tab) 5 mg PO DAILY [facility] Stop: 10/07/20 08:59 Last Admin: 09/07/20 08:05 Dose: 5 mg Documented by: [id number] Heparin Sodium/Dextrose (Heparin Sodium/Dextrose) 25,000 units in 500 mls @ 27 mls/hr IV .[id number] [facility]; Protocol Stop: 10/06/20 19:29 Last Titration: 09/07/20 11:43 Dose: 1,250 units/hr, 25 mls/hr Documented by: [id number] Cosigned by: [id number] Titration: 09/07/20 07:02 Dose: 1,350 units/hr, 27 mls/hr Documented by: [id number] Cosigned by: [id number] Titration: 09/07/20 04:59 Dose: 1,350 units/hr, 27 mls/hr Documented by: [id number] Cosigned by: [id number] Titration: 09/07/20 03:52 Dose: 0 units/hr, 0 mls/hr Documented by: [id number] Cosigned by: [id number] Titration: 09/06/20 20:45 Dose: 1,600 units/hr, 32 mls/hr Documented by: [id number] Cosigned by: [id number] Titration: 09/06/20 20:08 Dose: 0 units/hr, 0 mls/hr Documented by: [id number] Cosigned by: [id number] Admin: 09/06/20 20:00 Dose: 1,600 units/hr, 32 mls/hr Documented by: [id number] Cosigned by: [id number] Levothyroxine Sodium (Levothyroxine Sodium 25 Mcg Tablet) 25 mcg PO DAILYBB [facility] Stop: 10/07/20 06:29 Last Admin: 09/07/20 05:56 Dose: 25 mcg Documented by: [id number] Lisinopril (Lisinopril 20 Mg Tab) 20 mg PO DAILY [facility] Stop: 10/07/20 08:59 Last Admin: 09/07/20 08:05 Dose: 20 mg Documented by: [id number] Metoprolol Succinate (Metoprolol Succ 50mg Ext Rel Tab) 50 mg PO HS [facility] Stop: 10/06/20 23:03 Last Admin: 09/07/20 01:10 Dose: 50 mg Documented by: [id number] Metoprolol Succinate (Metoprolol Succ 25mg Ext Rel Tab) 25 mg PO QAM [facility] Stop: 10/07/20 08:59 Last Admin: 09/07/20 08:05 Dose: 25 mg Documented by: [id number] Pantoprazole Sodium (Pantoprazole 40 Mg Tab) 40 mg PO DAILY [facility] Stop: 10/07/20 08:59 Last Admin: 09/07/20 08:05 Dose: 40 mg Documented by: [id number] Polyethylene Glycol (Polyethylene (Miralax) 17 Gm Pack) 17 gm PO DAILY [facility] Stop: 10/07/20 08:59 Last Admin: 09/07/20 08:04 Dose: Not Given Documented by: [id number] Tamsulosin HCl (Tamsulosin Hcl 0.4 Mg Cap) 0.4 mg PO DAILY [facility] Stop: 10/07/20 08:59 Last Admin: 09/07/20 08:05 Dose: 0.4 mg Documented by: [id number] Discontinued Medications Heparin Sodium (Porcine) (Heparin Bolus Ed Use Only) 7,000 units IV NOW [facility] Stop: 09/06/20 19:56 Last Admin: 09/06/20 20:01 Dose: 7,000 units Documented by: [id number] Cosigned by: [id number] Heparin Sodium (Porcine) (Heparin Sod (Porcine) 1000 Unit/Ml 10 Ml Vial) Confirm Administered Dose 10,000 units .ROUTE .STK-MED ONE Stop: 09/06/20 19:57 Last Admin: 09/06/20 19:59 Dose: Not Given Documented by: [id number] Heparin Sodium/Dextrose (Heparin Iv Standard With Bolus) 1 ea IV NOW [facility]; Protocol Stop: 09/06/20 19:17 Last Admin: 09/06/20 20:00 Dose: 1 ea Documented by: [id number] Discharge Plan Visit Data Chief Complaint: Arm Pain Stated Complaint: BLOOD CLOT IN ARM ED Provider: Raffaele Miller Discharge Problem: Pulmonary emboli Patient Disposition: Admitted As Inpatient Discharge Instructions Interventions: ED Discharge Assessment Last Done: 09/06/20 23:16 Discharge Problem: Pulmonary emboli Qualifiers: Pulmonary embolism type: unspecified Chronicity: acute Acute cor pulmonale presence: without acute cor pulmonale Qualified Code(s): I26.99 - Other pulmonary embolism without acute cor pulmonale
[2020-09-06 18:25] LABS: Basophils # (auto) 0.02 K/uL (0-0.2); Basophils % (auto) 0.3 %; Eosinophils # (auto) 0.15 K/uL (0-0.5); Hematocrit (blood only) 39.4 % (42-52); Hemoglobin 13.2 g/dL (14.0-18.0); Immature Granulocytes # (auto) 0.01 K/uL (0.00-0.02); Immature Granulocytes % (auto) 0.1 %; Lymphocytes # (auto) 1.98 K/uL (1.2-3.4); Lymphocytes % (auto) 26.2 %; Mean Corpuscular Hemoglobin 29.3 pg (25-34); Mean Corpuscular Hgb Conc 33.5 g/dL (32-36); Mean Corpuscular Volume 87.6 fL (80-100); Mean Platelet Volume 9.4 fL (7.4-10.4); Monocytes # (auto) 0.74 K/uL (0.11-0.59); Monocytes % (auto) 9.8 %; Neutrophils # (auto) 4.67 K/uL (1.4-6.5); Neutrophils % (auto) 61.6 %; Platelet Count 157 K/uL (130-400); RDW Coefficient of Variation 13.2 % (11.5-14.5); RDW Standard Deviation 42.1 fL (36.4-46.3); White Blood Count 7.57 K/uL (4.8-10.8)
[2020-09-06 18:50] LABS: Albumin Level 3.3 gm/dl (3.4-5.0); BUN Creatinine Ratio 15.1 (10-20); Calcium 8.9 mg/dl (8.5-10.1); Creatinine Clr Calc Pharmacy 59.8 ml/min; Est GFR (Non-African American) 52.6; Potassium 3.7 mmol/L (3.5-5.1)
[2020-09-06 19:00] LABS: Albumin Globulin Ratio 0.9 (0.9-2); Bilirubin,Total 0.6 mg/dl (0.2-1); Globulin 3.5 gm/dl (2.5-4.0); Thyroid Stimulating Hormone 3.17 uIu/ml (0.300-4.500); Total Protein 6.8 gm/dl (6.4-8.2); Troponin I 0.045 ng/ml (0-0.045)
[2020-09-06 19:49] LABS: INR 1.1 (0.9-1.1); Prothrombin Time 11.3 Seconds (9.0-12.0)
[2020-09-06] MEDS ORDERED: Heparin BOLUS **ED Use Only IV STA (19:55)
[2020-09-06] MEDS ORDERED: HEPARIN SOD (PORCINE) 1000 UNIT/ML 10 ML VIAL ONE (19:56)
[2020-09-06] MEDS: HEPARIN SODIUM/DEXTROSE 25,000 UNITS/500 ML BAG IV SCH (20:00)
--- NOTE | 2020-09-06 21:17 | History & Physical Report ---
Date of Service September 06, 2020 Assessment & Plan (1) Pulmonary embolism: Patient is a 75-year-old male with a past medical history of an abdominal aortic aneurysm recently evaluated found not to be changing in size, acute pancreatitis, anemia, benign prostate hyperplasia, coronary artery disease, cardiomyopathy with most recent EF of 35-40, cerebral atherosclerosis, history of myocardial infarction, hypertension, hypothyroidism, lumbar radiculopathy, myocardial infarction, parkinsonism, rhinitis, severe sleep apnea, tremor who presents after imaging to evaluate his abdominal aortic aneurysm indicated bilateral pulmonary emboli. #Pulmonary embolism This appears to be an unprovoked event, patient has no recent history of calf pain, recent history of prolonged sitting, or other identifiable source of his pulmonary embolism. His pulmonary emboli were noted incidentally while being valuated for an abdominal aortic aneurysm earlier today. Given that he had already received dye we were unable to obtain a CTA, will repeat chest CTA when able. A work-up has been ordered, results are pending. Completely asymptomatic, and has no constitutional symptoms. He was started on a heparin drip in the ER and will be continued on it overnight. Ultimately will need for some form of anticoagulation at discharge Follow-up hypercoagulable work-up -Chest CTA when able -Follow-up ABIs -On a heparin drip -Anticoagulation on discharge -Monitor vital signs #Abdominal aortic aneurysm Patient with longstanding history of abdominal aortic aneurysm, was imaged today when pulmonary emboli were noted. Imaging demonstrated no significant change since February 23, 2020, the largest component measures 4.4 cm in diameter #Parkinsonism Well controlled at baseline, continue home meds -Carbidopa levodopa entacapone #Dyslipidemia -Continue home atorvastatin 80 mg daily #Coronary artery disease History of stent placement in the , takes antiplatelet for this -Continue clopidogrel -Continue aspirin #Cardiomyopathy Most recent EF 35, followed by many physicians group, well controlled at present #BPH Patient with longstanding history of BPH seen on imaging today, continue home meds. -Finasteride -Recommend follow-up with PCP #Hypothyroidism Continue levothyroxine 25 mcg FENa: Heart healthy diet Code Status: Full code DVT PPX: Heparin drip PT/OT: Ordered Dispo: MedSurg telemetry Raphael Spencer MD PGY 2, FCM This chart was completed utilizing [employer] voice recognition software. Grammatical errors, random word insertions, pronoun errors, and in complete sentences are an occasional consequence of the system. Any questions or concerns about the content, text, or information contained within the body of this dictation should be addressed directly to the physician for clarification. (2) Parkinsonism: (3) Hypothyroidism: (4) Dyslipidemia: (5) Cardiomyopathy: (6) CAD (coronary artery disease): (7) Benign prostate hyperplasia: (8) Abdominal aortic aneurysm 35 to 39 mm in diameter: History of Present Illness Patient is a 75-year-old male with a past medical history of an abdominal aortic aneurysm recently evaluated found not to be changing in size, acute pancreat itis, anemia, benign prostate hyperplasia, coronary artery disease, cardiomyopathy with most recent EF of 35-40, cerebral atherosclerosis, history of myocardial infarction, hypertension, hypothyroidism, lumbar radiculopathy, myocardial infarction, parkinsonism, rhinitis, severe sleep apnea, tremor who presents after imaging to evaluate his abdominal aortic aneurysm indicated bilateral pulmonary emboli. Patient reports he has been in his normal state of health recently, denies prolonged sitting, denies constitutional symptoms, denies fever, chills, cough, cold, other symptoms. Patient has been voiding and stooling appropriately, and is otherwise completely asymptomatic. Patient denies any previous history of blood clots, any hypercoagulable risk factors, is unaware of any genetic disorders. Patient denies any recent weight loss, or other constitutional symptoms as noted above. Patient was lying comfortably in his bed in the emergency department, and was pleasant to converse with. All questions were answered, no acute concerns. Primary Care Provider: Chencho Gamboa DO Allergies Allergy/AdvReac Type Severity Reaction Status Date / Time No Known Drug Allergies Allergy Unknown Verified 09/06/20 20:05 Home Medications Medication Instructions Recorded Confirmed Type aspirin 81 mg tablet,delayed 81 mg PO DAILY #90 tab 04/16/19 09/06/20 Rx release mecobalamin (vitamin B12) 1,000 1,000 mcg SL DAILY #30 tab 04/16/19 09/06/20 Rx mcg disintegrating tablet,sublingual atorvastatin 80 mg tablet 80 mg PO DAILY #90 tab 12/23/19 09/06/20 Rx triamcinolone acetonide 0.1 % 1 appln TOP BID PRN 01/21/20 09/06/20 History topical ointment azelastine 137 mcg (0.1 %) nasal 2 sprays INTNAS ONCE PRN ml 02/29/20 09/06/20 History spray aerosol clopidogrel 75 mg tablet 75 mg PO .COMPLEX #45 tab 03/01/20 09/06/20 Rx isosorbide mononitrate 60 mg 90 mg PO DAILY #135 tab 03/01/20 09/06/20 Rx tablet,extended release 24 hr levothyroxine 25 mcg tablet 25 mcg PO DAILY #90 tab 03/01/20 09/06/20 Rx lisinopril 20 mg tablet 20 mg PO DAILY #90 tab 03/13/20 09/06/20 Rx pantoprazole 20 mg tablet,delayed 20 mg PO DAILY #90 tab 03/21/20 09/06/20 Rx release finasteride 5 mg tablet 5 mg PO DAILY #90 tab 05/24/20 09/06/20 Rx tamsulosin 0.4 mg capsule 0.4 mg PO DAILY #90 cap 05/24/20 09/06/20 Rx carbidopa 37.5 mg-levodopa 150 1 tab PO .COMPLEX 90 Days #450 tab 07/04/20 1 11/07/19 Rx mg-entacapone 200 mg tablet metoprolol succinate 100 mg See Rx Instructions PO .COMPLEX 08/21/20 09/06/20 Rx tablet,extended release 24 hr #135 tab nitroglycerin 0.4 mg sublingual 0.4 mg SL Q5M PRN #30 tab 08/21/20 09/06/20 Rx tablet Past Med/Surg History Medical History (Updated 09/07/20 @ 12:27 by Raffaele Miller MD) Abdominal aortic aneurysm 35 to 39 mm in diameter Acute pancreatitis Anemia Benign prostate hyperplasia CAD (coronary artery disease) Cardiomyopathy EF=35-40% Cerebral atherosclerosis History of myocardial infarction HTN (hypertension) Hypothyroidism Lumbar radiculopathy Myocardial infarct Parkinsonism Rhinitis Severe sleep apnea Tremor Surgical History S/P cholecystectomy 2013 S/P colonoscopy S/P coronary artery stent placement (2008) 2008- first diagonal S/P tonsillectomy Family History Father Acute myocardial infarction Hypertension Mother Valvular heart disease Hypertension Denies family history of Ovarian cancer Prostate cancer Breast cancer Lung cancer Colorectal cancer Social History Smoking Status: Current every day smoker Tobacco Type: Pipe Age Started Using Tobacco: 28; Second Hand Exposure: No; Do You Dip or Chew Tobacco: No; Hx Alcohol Use: No Hx Substance Use: No Preferred Language: Telugu Communication Ability: Effective Visual Impairment: Limited Hearing Ability: Hard of Hearing Development Chemist Required: No Beliefs That Will Affect Care: None marital status: Current Living Situation: Spouse current occupational status: retired Other Information That Helps Us Care for You: No Feels Safe at Home: Yes Safety Concerns: Feels Safe At This Time Childhood Exposure to Second-Hand Smoke: Yes caffeine: No Dental Care, Regularly: Yes Physical Activity Frequency: 1-2 Times per Week Seatbelt Use: always Sunscreen Use: Yes Assistive Devices: Glasses Review of Systems Review of Systems: All systems reviewed & are unremarkable except as noted in HPI & below Physical Exam Physical Exam: General: In no acute distress HEENT: Normocephalic atraumatic Neck: Normal to visual inspection, trachea midline Cardiac: Regular rate and rhythm, I did not appreciate any significant murmurs rubs or gallops, normal S1, normal S2 Respiratory: Clear to auscultation bilaterally with symmetrical chest expansion bilaterally denies pain with chest expansion. GI: Soft, nontender, nondistended, normal bowel sounds MSK: Moves all extremities Neuro: Alert and oriented x4 Psych: Calm and cooperative Results & Data Results & Data ([facility]) Vital Signs (Past 12 Hours) Vital Signs Temp Pulse Pulse Resp BP BP Pulse Ox 09/06/20 18:21 68 22 139/95 95 09/06/20 18:06 69 20 95 09/06/20 17:42 36.8 C 80 16 164/111 H 94 Laboratory Results 09/06/20 09/06/20 09/06/20 Range/Units 20:37 19:30 18:15 WBC (4.8-10.8) K/uL RBC (4.7-6.1) M/uL Hgb (14.0-18.0) g/dL Hct (42-52) % MCV (80-100) fL MCH (25-34) pg MCHC (32-36) g/dL RDW Std Deviation (36.4-46.3) fL RDW Coeff of Brett (11.5-14.5) % Plt Count (130-400) K/uL MPV (7.4-10.4) fL Immature Gran % (Auto) % Neut % (Auto) % Lymph % (Auto) % [place] % (Auto) % Eos % (Auto) % Baso % (Auto) % Neut # (Auto) (1.4-6.5) K/uL Lymph # (Auto) (1.2-3.4) K/uL [place] # (Auto) (0.11-0.59) K/uL Eos # (Auto) (0-0.5) K/uL Baso # (Auto) (0-0.2) K/uL Immature Gran # (Auto) (0.00-0.02) K/uL PT 11.3 (9.0-12.0) Seconds INR 1.1 (0.9-1.1) LA PTT Screen Pending Protein C Activity Pending Protein S Activity Pending Antithrombin III Activ Pending Factor V Leiden Mutat Pending Factor V Leiden Interp Pending Sodium (136-145) mmol/L Potassium (3.5-5.1) mmol/L Chloride (98-107) mmol/L Carbon Dioxide (21-32) mmol/L Anion Gap (3-11) BUN (7-18) mg/dl Creatinine (0.6-1.4) mg/dl Est Cr Clr Drug Dosing ml/min Est GFR ( Amer) Est GFR (Non-Af Amer) BUN/Creatinine Ratio (10-20) Glucose (70-99) mg/dl Calcium (8.5-10.1) mg/dl Total Bilirubin (0.2-1) mg/dl AST (15-37) U/L ALT (12-78) U/L Alkaline Phosphatase (45-117) U/L Troponin I (0-0.045) ng/ml Total Protein (6.4-8.2) gm/dl Albumin (3.4-5.0) gm/dl Globulin (2.5-4.0) gm/dl Albumin/Globulin Ratio (0.9-2) TSH (0.300-4.500) uIu/ml Beta-2-GPI IgG Ab Pending Beta-2-GPI IgM Ab Pending Anti-Cardiolipin IgG Ab Pending Anti-Cardiolipin IgM Ab Pending SARS-CoV-2 Ag (Rapid) Negative (Negative) Prothrombin Gene Mutate Pending Prothromb Gene Comment Pending 09/06/20 09/06/20 Range/Units 18:15 18:15 WBC 7.57 (4.8-10.8) K/uL RBC 4.50 L (4.7-6.1) M/uL Hgb 13.2 L (14.0-18.0) g/dL Hct 39.4 L (42-52) % MCV 87.6 (80-100) fL MCH 29.3 (25-34) pg MCHC 33.5 (32-36) g/dL RDW Std Deviation 42.1 (36.4-46.3) fL RDW Coeff of Brett 13.2 (11.5-14.5) % Plt Count 157 (130-400) K/uL MPV 9.4 (7.4-10.4) fL Immature Gran % (Auto) 0.1 % Neut % (Auto) 61.6 % Lymph % (Auto) 26.2 % [place] % (Auto) 9.8 % Eos % (Auto) 2.0 % Baso % (Auto) 0.3 % Neut # (Auto) 4.67 (1.4-6.5) K/uL Lymph # (Auto) 1.98 (1.2-3.4) K/uL [place] # (Auto) 0.74 H (0.11-0.59) K/uL Eos # (Auto) 0.15 (0-0.5) K/uL Baso # (Auto) 0.02 (0-0.2) K/uL Immature Gran # (Auto) 0.01 (0.00-0.02) K/uL PT (9.0-12.0) Seconds INR (0.9-1.1) LA PTT Screen Protein C Activity Protein S Activity Antithrombin III Activ Factor V Leiden Mutat Factor V Leiden Interp Sodium 143 (136-145) mmol/L Potassium 3.7 (3.5-5.1) mmol/L Chloride 108 H (98-107) mmol/L Carbon Dioxide 29 (21-32) mmol/L Anion Gap 6.0 (3-11) BUN 20 H (7-18) mg/dl Creatinine 1.30 (0.6-1.4) mg/dl Est Cr Clr Drug Dosing 59.8 ml/min Est GFR ( Amer) 61.0 Est GFR (Non-Af Amer) 52.6 BUN/Creatinine Ratio 15.1 (10-20) Glucose 107 H (70-99) mg/dl Calcium 8.9 (8.5-10.1) mg/dl Total Bilirubin 0.6 (0.2-1) mg/dl AST 14 L (15-37) U/L ALT 8 L (12-78) U/L Alkaline Phosphatase 78 (45-117) U/L Troponin I 0.045 (0-0.045) ng/ml Total Protein 6.8 (6.4-8.2) gm/dl Albumin 3.3 L (3.4-5.0) gm/dl Globulin 3.5 (2.5-4.0) gm/dl Albumin/Globulin Ratio 0.9 (0.9-2) TSH 3.170 (0.300-4.500) uIu/ml Beta-2-GPI IgG Ab Beta-2-GPI IgM Ab Anti-Cardiolipin IgG Ab Anti-Cardiolipin IgM Ab SARS-CoV-2 Ag (Rapid) (Negative) Prothrombin Gene Mutate Prothromb Gene Comment Medications Administered Current Inpatient Medications Heparin Sodium/Dextrose (Heparin Sodium/Dextrose) 25,000 units in 500 mls @ 32 mls/hr IV .[id number] [facility]; Protocol Stop: 10/06/20 19:29 Last Titration: 09/06/20 20:08 Dose: 0 units/hr, 0 mls/hr Documented by: Code Status & VTE Plan Code Status full VTE Prophylaxis Plan VTE Prophylaxis will be ordered: Yes Supervising Physician Co-Signing Physician Notes Attending addendum: I have physically seen this patient, have supervised the medical residents activities, and agree with the H&P unless as otherwise noted. Assessment and Plan: Pulmonary emboli/right middle lobe and right lower lobe- Ordered hypercoagulable work-up Initial emboli, noted on CT abdomen pelvis. Would perform CT angiography PE protocol to assess entire lung structure. Heparin drip standard dosing per protocol without bolus Bilobed infrarenal abdominal aortic aneurysm- Reason for initial CT abdomen pelvis was performed. No change in imaging since 02/23/2020. Bilateral iliac artery aneurysms- Follow serially with imaging Remaining orders notations as noted Resident Activity Tracking Resident Involvement: Resident Care Provided Care Provided: Adult [facility]
[2020-09-06] MEDS ORDERED: TRIAMCINOLONE ACET 0.1% OINT 15 GM TUBE TOP PRN (23:04)
[2020-09-06] MEDS ORDERED: ONDANSETRON INJ 2 MG/ML 2 ML VIAL IV PRN (23:04)
[2020-09-06] MEDS ORDERED: NON-FORMULARY MEDICATION (Carbidopa-Levodopa-Entacapone [Stalevo 150] 37.5-150-200 mg tabl PO SCH (23:04)
[2020-09-07] MEDS: METOPROLOL SUCC 50MG EXT REL TAB PO SCH ×2 (01:10→20:10)
[2020-09-07] MEDS: CARBIDOPA/LEVODOPA 25/100MG TAB PO SCH ×3 (03:03→16:34)
[2020-09-07] MEDS: ENTACAPONE 200 MG TAB PO SCH ×3 (03:03→16:33)
[2020-09-07 03:39] LABS: Partial Thromboplastin Ratio 4.2
[2020-09-07] MEDS: LEVOTHYROXINE SODIUM 25 MCG TABLET PO SCH (05:56)
--- NOTE | 2020-09-07 07:01 | Ultrasound Report ---
BILATERAL LOWER EXTREMITY VENOUS DOPPLER HISTORY: Acute pain and swelling of the lower extremities PE's COMPARISON STUDY: CTA abdomen and pelvis 09/06/2020 FINDINGS: There is normal compressibility, flow, and augmentation within the bilateral lower extremit y deep venous systems. IMPRESSION: No DVT within the right or left lower extremity. ACT 112: Negative or not required by law. Electronically signed by: Javier Disla M.D. 09/07/2020 7:00 AM
[2020-09-07] MEDS: ATORVASTATIN 40 MG TAB PO SCH (08:04)
[2020-09-07] MEDS: CYANOCOBALAMIN (VITAMIN B-12) 2,500 MCG TAB.SUBL SL SCH (08:04)
[2020-09-07] MEDS: POLYETHYLENE (MIRALAX) 17 GM PACK PO SCH (08:04)
[2020-09-07] MEDS: ASPIRIN 81 MG ECTAB PO SCH (08:04)
[2020-09-07] MEDS: FINASTERIDE 5 MG TAB PO SCH (08:05)
[2020-09-07] MEDS: TAMSULOSIN HCL 0.4 MG CAP PO SCH (08:05)
[2020-09-07] MEDS: METOPROLOL SUCC 25MG EXT REL TAB PO SCH (08:05)
[2020-09-07] MEDS: PANTOprazole 40 MG TAB PO SCH (08:05)
[2020-09-07] MEDS: lisinopril 20 MG TAB PO SCH (08:05)
[2020-09-07 11:38] LABS: Partial Thromboplastin Ratio 2.6
[2020-09-07 11:42] LABS: Partial Thromboplastin Time 73.7 Seconds (21.0-31.0)
--- NOTE | 2020-09-07 12:57 | Electrocardiogram Report ---
Test Reason : Blood Pressure : / mmHG Vent. Rate : 072 BPM Atrial Rate : 072 BPM P-R Int : 204 ms QRS Dur : 100 ms QT Int : 412 ms P-R-T Axes : 025 -38 075 degrees QTc Int : 451 ms Normal sinus rhythm Left axis deviation Moderate voltage criteria for LVH, may be normal variant Poor R wave progression, consider anterior ND vs. lead placement vs. LVH Abnormal ECG When compared with ECG of 05-DEC-2013 06:17, No significant change was found Confirmed by Tate Gallagher ([id number]) on 09/07/2020 12:57:14 PM Referred By: Daisy Hernandez Confirmed By:Timothy Gallagher
[2020-09-07] MEDS: HEPARIN SODIUM/DEXTROSE 25,000 UNITS/500 ML BAG IV SCH (14:42)
[2020-09-07 16:39] LABS: Creatinine Clr Calc Pharmacy 75.7 ml/min; Est GFR (African American) 81.8; Est GFR (Non-African American) 70.6
--- NOTE | 2020-09-07 19:04 | Hospitalist Progress Note ---
Date of Service September 07, 2020 Assessment & Plan (1) Pulmonary embolism: Patient is a 75-year-old male with a PMHx of HTN, hypothyroidism, cardiomyopathy (most recent EF 35%), acute pancreatitis, anemia, BPH, CAD, cerebral atherosclerosis, OH, lumbar radiculopathy, parkinsonism, severe sleep apnea, and AAA. He was undergoing routine imaging for evaluation of the AAA (which showed no significant change since 02/23/20 w/ size of 4.4 cm diameter) when he was found to have bilateral pulmonary emboli. At that time, patient was sent to the hospital for admission for further evaluation. Pulmonary embolism - Appears to be an unprovoked event; PE noted incidentally while being evaluated for AAA on 09/06/20 - No recent history of calf pain, calf swelling, shortness of breath, or chest pain - No recent history of prolonged sitting, periods of immobilization, or surgery - With regards to cancer screening: last colonoscopy 2-3 years ago (no polyps or concerns at that time), PSA annually (no hx of abnormalities), never tobacco smoker - Given that he received dye for the CT abdomen at 3pm on 09/06/20, Cr checked and slightly elevated from baseline at 1.3 (baseline 1.0) - Will wait 24 hours, recheck Cr, and plan for chest CTA - Repeat Cr 09/07/20 is 1.02 --> will order chest CTA - Plan for 500cc at 100cc/hr NSS IVF after chest CTA - No further IVF due to hx of cardiopathy w/ EF of 35% - Continue Heparin drip at this time - Will plan to convert to oral anticoagulation tomorrow; will plan for at least 3 months of anticoagulation due to unprovoked PE Abdominal aortic aneurysm - Longstanding history of AAA, imaged 09/06/20 when pulmonary emboli were noted - Imaging demonstrated no significant change since February 23, 2020, the largest component measures 4.4 cm in diameter Parkinsonism - Well controlled at baseline - Patient reports starting [id number] within past year; continue this home med Dyslipidemia Continue home atorvastatin 80 mg daily Coronary artery disease - History of stent placement in the - Patient still on dual antiplatelet therapy for this -- takes ASA and Plavix (MW) - Will consult cardiology regarding dual antiplatelet therapy and need for further anticoagulation for these pulmonary emboli - Continue ASA and Plavix for now Cardiomyopathy - Most recent EF 35% - Patient states he is followed by cardiology, Dr. Beltran BPH - Continue home finasteride 5 mg po daily Hypothyroidism - Continue home levothyroxine 25 mcg po daily FENa: Heart healthy diet DVT PPX: Heparin drip Dispo: MedSurg telemetry Code Status: Full code (2) Parkinsonism: (3) Hypothyroidism: (4) Dyslipidemia: (5) Cardiomyopathy: (6) CAD (coronary artery disease): (7) Benign prostate hyperplasia: (8) Abdominal aortic aneurysm 35 to 39 mm in diameter: Admission and Anticipated Discharge Date Admission Date: September 06, 2020 Supervising Physician Co-Signing Physician Notes Patient seen and examined with PGY-1 Dr. Song. Agree with history, exam findings, assessment and plan of care: In brief, Mr. Levine is a 75 year old male with history of CAD (EF 35-40%), HTN, Parkison's disease and SPENSER admitted with incidental finding of right lower lobe and R middle lobe PE when he had CTA of abdomen to assess abdominal aortic aneurysm. No dyspnea, chest pain, pleurtic chest pain. No history of prior VTE. Up to date on cancer screenings. Heart with regular rate and rhythm. Breathing easily without accessory muscle use. Lungs are clear to auscultation. Labs and imaging reviewed. 1. Unprovoked PE (incidental finding). No supplemental O2. Hypercoag panel pending. LE doppler negative. Complete CTA showed right lower lobe, right middle lobe and right upper lobe pulmonary artery defects consistent with acute pE. THere is a small left upper lobe pulmonary artery filling defect as well. TTE tomorrow for prognostic purposes to evaluate RV thrombus/RV strain. Continue heparin gtt for now. Would be a candidate to switch to Xa inhibitor tomorrow. 2. CONCEPCION follow initial CTA. Will receive small fluid bolus following CTA today. recheck Cr in the AM. 3. CAD/cardiomyopathy. Prior EF 35-40%. Had sten placed in 1989. Currently on baby ASA daily and Plavix MWF. Unsure if there is a reason he continues to need JOSE ROBERTO. If there is not a compelling reason to continue Plavix at this point, would strongly consider stopping since he will be anticoagulated for several months for PE to reduce bleeding risk. Dispo: pending completion of work up. Subjective Mr. Joey Leahy is a 75-year-old male with a PMHx of HTN, hypothyroidism, cardiomyopathy (most recent EF 35%), acute pancreatitis, anemia, BPH, CAD, cerebral atherosclerosis, OH, lumbar radiculopathy, parkinsonism, severe sleep apnea, and AAA. He was undergoing routine imaging for evaluation of the AAA 09/06/20 (which showed no significant change since 02/23/20 w/ size of 4.4 cm artie meter) when he was found to have bilateral pulmonary emboli. At that time, patient was sent to the hospital for admission for further evaluation. These pulmonary emboli appear to be an unprovoked event. He denies a recent history of calf pain, calf swelling, shortness of breath, or chest pain. Patient has no recent history of prolonged sitting, periods of immobilization, or surgery. With regards to cancer screening: last colonoscopy 2-3 years ago (no polyps or concerns at that time), PSA annually (no hx of abnormalities), never tobacco smoker. Patient was seen and evaluated at bedside. He states that he feels at baseline health and he is asymptomatic. Patient has no concerns or complaints today. He specifically denies fever, chills, weakness, SOB, cough, chest pain, nausea, vomiting, abdominal pain, leg pain, or leg swelling. Review of Systems Constitutional: no fever, no chills and no fatigue Respiratory: no cough, no dyspnea, no dyspnea on exertion and no pain on inspiration Cardiovascular: no chest pain Gastrointestinal: no abdominal pain, no nausea, no vomiting, no constipation and no diarrhea/loose stools Musculoskeletal: no swelling Neurologic: no dizziness and no headache(s) Physical Exam Physical Exam: GENERAL: No acute distress. Well developed and well nourished. Vital signs reviewed. EYES: EOMI. Anicteric sclerae. HENT: Moist mucous membranes. RESPIRATORY: Clear to auscultation bilaterally. No wheezing, rales, or rhonchi. CARDIOVASCULAR: Regular rate and rhythm. ABDOMEN: Soft and non-tender. Normal bowel sounds. EXTREMITIES: No edema. Non-tender. SKIN: Warm, dry. No rashes or lesions. NEUROLOGIC: A/O x4. PSYCHIATRIC: Cooperative. Appropriate mood and affect. Results & Data Results & Data ([facility]) Vital Signs (Past 12 Hours) Vital Signs Temp Pulse Pulse Resp BP BP Pulse Ox 09/07/20 16:11 57 L 12/03/20 15:20 37.0 C 60 18 158/88 H 96 09/07/20 11:32 36.8 C 55 L 16 163/89 H 95 09/07/20 08:50 53 L 09/07/20 07:39 36.6 C 54 L 18 172/91 H 94 Resident Activity Tracking Resident Involvement: Resident Care Provided Care Provided: Adult [facility]
[2020-09-07 19:25] LABS: Partial Thromboplastin Ratio 2.4
[2020-09-07] MEDS ORDERED: OPTIRAY 320 125ml IV ONE (19:37)
[2020-09-07] MEDS ORDERED: SODIUM CHLORIDE 0.9% 500 ML IV SCH (20:00)
--- NOTE | 2020-09-07 20:14 | CT Scan Report ---
CT ANGIOGRAM OF THE CHEST CLINICAL HISTORY: Possible pulmonary embolism on abdominal CT scan SHORTNESS OF BREATH COMPARISON STUDY: Chest CT dated 01/24/2017, abdominal CT scan dated 09/06/2020 TECHNIQUE: Following the IV administration of 119 mL of Optiray-320, CT angiogram of the thorax was p erformed from the thoracic inlet to the lung bases utilizing the pulmonary embolus protocol. Images a re reviewed in the axial, sagittal, and coronal planes. IV contrast was administered without complica tion. MIP imaging was performed. A dose lowering technique was utilized adhering to the principles o f ALARA. CT DOSE: 710.64 mGy.cm FINDINGS: No pathologically enlarged axillary mediastinal or hilar lymph nodes were visualized. There is mild ectasia of the ascending thoracic aorta which measures 37 mm. There are right lower lobe, right middle lobe, and right upper lobe pulmonary artery filling defects indicative of acute pulmonary embolism. Is also a tiny left upper lobe pulmonary artery filling defec t. No pleural effusions are visualized. There is no focal pulmonary consolidation. There is mild dependent atelectasis. There is moderate res piratory motion artifact. There is a 2.5 mm solid right lower lobe pulmonary nodule as visualized image #[id number]. This remain s imilar to the prior 2017 study. No follow-up is required IMPRESSION: 1. CT angiography the chest confirms acute pulmonary embolism, predominantly involving the right pulm onary arterial tree ACT 112: Negative or not required by law. Electronically signed by: Best Lombardo M.D. 09/07/2020 8:12 PM
[2020-09-07 21:50] LABS: Partial Thromboplastin Time 67.9 Seconds (21.0-31.0)
[2020-09-07] MEDS ORDERED: ENTACAPONE 200 MG TAB PO SCH (22:00)
[2020-09-07] MEDS ORDERED: CARBIDOPA/LEVODOPA 25/100MG TAB PO SCH (22:00)
[2020-09-08 02:53] LABS: Partial Thromboplastin Ratio 3.4
[2020-09-08 02:56] LABS: Partial Thromboplastin Time 95.1 Seconds (21.0-31.0)
--- NOTE | 2020-09-08 02:58 | Billing Data ---
Date of Service September 08, 2020 Coding Level of Care Code 17452 OBS Care - Level 3
[2020-09-08] MEDS: CARBIDOPA/LEVODOPA 25/100MG TAB PO SCH ×3 (05:42→15:14)
[2020-09-08] MEDS: LEVOTHYROXINE SODIUM 25 MCG TABLET PO SCH (05:43)
[2020-09-08] MEDS: ENTACAPONE 200 MG TAB PO SCH ×3 (05:43→15:12)
[2020-09-08] MEDS: lisinopril 20 MG TAB PO SCH (08:05)
[2020-09-08] MEDS: ASPIRIN 81 MG ECTAB PO SCH (08:05)
[2020-09-08] MEDS: PANTOprazole 40 MG TAB PO SCH (08:07)
[2020-09-08] MEDS: METOPROLOL SUCC 25MG EXT REL TAB PO SCH (08:07)
[2020-09-08] MEDS: TAMSULOSIN HCL 0.4 MG CAP PO SCH (08:08)
[2020-09-08] MEDS: CYANOCOBALAMIN (VITAMIN B-12) 2,500 MCG TAB.SUBL SL SCH (08:08)
[2020-09-08] MEDS: ATORVASTATIN 40 MG TAB PO SCH (08:09)
[2020-09-08] MEDS: FINASTERIDE 5 MG TAB PO SCH (08:09)
[2020-09-08] MEDS: HEPARIN SODIUM/DEXTROSE 25,000 UNITS/500 ML BAG IV SCH (08:11)
[2020-09-08] MEDS: POLYETHYLENE (MIRALAX) 17 GM PACK PO SCH (08:14)
[2020-09-08 08:35] LABS: Calcium 9.1 mg/dl (8.5-10.1); Creatinine Clr Calc Pharmacy 75.8 ml/min; Est GFR (African American) 81.8; Est GFR (Non-African American) 70.6; Potassium 3.5 mmol/L (3.5-5.1)
[2020-09-08] MEDS ORDERED: CLOPIDOGREL BISULFATE 75 MG TAB PO SCH (09:00)
[2020-09-08 10:26] LABS: Partial Thromboplastin Ratio 3.1
[2020-09-08 10:42] LABS: Partial Thromboplastin Time 86.3 Seconds (21.0-31.0)
--- NOTE | 2020-09-08 11:35 | XCELERA ---
[id number]
--- NOTE | 2020-09-08 11:54 | Discharge Summary ---
Date of Service September 08, 2020 Admission HPI Per Admitting Provider Patient is a 75-year-old male with a past medical history of an abdominal aortic aneurysm recently evaluated found not to be changing in size, acute pancreatitis, anemia, benign prostate hyperplasia, coronary artery disease, cardiomyopathy with most recent EF of 35-40, cerebral atherosclerosis, history of myocardial infarction, hypertension, hypothyroidism, lumbar radiculopathy, myocardial infarction, parkinsonism, rhinitis, severe sleep apnea, tremor who presents after imaging to evaluate his abdominal aortic aneurysm indicated bilateral pulmonary emboli. Patient reports he has been in his normal state of health recently, denies prolonged sitting, denies constitutional symptoms, denies fever, chills, cough, cold, other symptoms. Patient has been voiding and stooling appropriately, and is otherwise completely asymptomatic. Patient denies any previous history of blood clots, any hypercoagulable risk factors, is unaware of any genetic disorders. Patient denies any recent weight loss, or other constitutional symptoms as noted above. Patient was lying comfortably in his bed in the emergency department, and was pleasant to converse with. All questions were answered, no acute concerns. Primary Care Provider: Chencho Gamboa, DO Admission Exam Per Admitting Provider General: In no acute distress HEENT: Normocephalic atraumatic Neck: Normal to visual inspection, trachea midline Cardiac: Regular rate and rhythm, I did not appreciate any significant murmurs rubs or gallops, normal S1, normal S2 Respiratory: Clear to auscultation bilaterally with symmetrical chest expansion bilaterally denies pain with chest expansion. GI: Soft, nontender, nondistended, normal bowel sounds MSK: Moves all extremities Neuro: Alert and oriented x4 Psych: Calm and cooperative Principal Diagnosis pulmonary emboli Discharge Exam GENERAL: No acute distress. Well developed and well nourished. Vital signs reviewed. EYES: EOMI. Anicteric sclerae. HENT: Moist mucous membranes. RESPIRATORY: Clear to auscultation bilaterally. No wheezing, rales, or rhonchi. CARDIOVASCULAR: Regular rate and rhythm. ABDOMEN: Soft and non-tender. Normal bowel sounds. EXTREMITIES: No edema. Non-tender. No calf tenderness to palpation. SKIN: Warm, dry. NEUROLOGIC: A/O x4. No focal neurological deficits. Normal gait - patient observed walking back to the bed from the in-room bathroom. PSYCHIATRIC: Cooperative. Appropriate mood and affect. Discharge Data Allergies Allergy/AdvReac Type Severity Reaction Status Date / Time No Known Drug Allergies Allergy Unknown Verified 09/06/20 20:05 Consultations 09/06/20 19:29 ED Decision to Admit Stat Ordered Studies 09/06/20 19:50 US venous doppler LE BI Urgent 09/07/20 18:44 CT angio chest PE protocol Routine Hospital Course (1) Pulmonary embolism: Patient is a 75-year-old male with a PMHx of HTN, hypothyroidism, cardiomyopathy (most recent EF 35%), acute pancreatitis, anemia, BPH, CAD, cerebral atherosclerosis, NC, lumbar radiculopathy, parkinsonism, severe sleep apnea, and AAA. He was undergoing routine imaging for evaluation of the AAA (which showed no significant change since 02/23/20 w/ size of 4.4 cm diameter) when he was found to have bilateral pulmonary emboli. At that time, patient was sent to the hospital for admission for further evaluation. Pulmonary embolism - Appears to be an unprovoked event; PE noted incidentally while being evaluated for AAA on 09/06/20 - No recent history of calf pain, calf swelling, shortness of breath, or chest pain - No recent history of prolonged sitting, periods of immobilization, or surgery - With regards to cancer screening: last colonoscopy 2-3 years ago (no polyps or concerns at that time), PSA annually (no hx of abnormalities), never tobacco smoker - Given that he received dye for the CT abdomen at 3pm on 09/06/20, Cr checked and slightly elevated from baseline at 1.3 (baseline 1.0) - Will wait 24 hours, recheck Cr, and plan for chest CTA - Repeat Cr 09/07/20 is 1.02 --> will order chest CTA - Plan for 500cc at 100cc/hr NSS IVF after chest CTA - No further IVF due to hx of cardiopathy w/ EF of 35% - Chest CTA 09/07/20: There are right lower lobe, right middle lobe, and right upper lobe pulmonary artery filling defects indicative of acute pulmonary embolism. Is also a tiny left upper lobe pulmonary artery filling defect. - Continue Heparin drip at this time; will discontinue Heparin 09/08/20 on discharge - Plan for oral anticoagulation with NOAC - Xarelto with following regimen: - Xarelto 15mg po BID x21 days followed by 20mg po daily x6 months then 10mg po daily x6 months - Patient previously on dual antiplatelet therapy with ASA and Plavix -- will discontinue plavix due to initiation of NOAC; continue ASA - Plan to f/u with PCP within 1 week and appointment scheduled with weight reduction specialist, Dr. Beltran on Friday09/19/20 at 1:30pm Abdominal aortic aneurysm - Longstanding history of AAA, imaged 09/06/20 when pulmonary emboli were noted - Imaging demonstrated no significant change since February 23, 2020, the largest component measures 4.4 cm in diameter Parkinsonism - Well controlled at baseline - Patient reports starting [id number] within past year; continue this home med as prescribed Dyslipidemia Continue home atorvastatin 80 mg daily Coronary artery disease - History of stent placement in the ; patient still on dual antiplatelet therapy for this -- takes ASA and Plavix - Continued ASA and Plavix as inpatient - As patient will be d/c on NOAC (Xarelto) for the PE, will discontinue Plavix home medication; continue ASA 81mg po daily - NOAC regimen as noted above Cardiomyopathy - Most recent EF 35% - Patient states he is followed by cardiology, Dr. Beltran - Repeat TTE 09/08/20: suboptimal study, left ventricular systolic function in moderately to severely reduced (EF 30-35%), left ventricle is borderline dilated, mild concentric LVH, regional wall motion abnormalities as specified, mild mitral regurgitation, right ventricular systolic pressure is normal - Recommend that patient f/u with PCP as outpatient BPH - Continue home finasteride 5 mg po daily Hypothyroidism - Continue home levothyroxine 25 mcg po daily Code Status: Full code (2) Parkinsonism: (3) Hypothyroidism: (4) Dyslipidemia: (5) Cardiomyopathy: (6) CAD (coronary artery disease): (7) Benign prostate hyperplasia: (8) Abdominal aortic aneurysm 35 to 39 mm in diameter: Total Time Total Time Spent Total Time Spent (In Minutes): See attending attestation Discharge Plan Discharge Items Patient Disposition: Home - Self-Care Reason For Visit: PE Discharge Diagnosis: pulmonary emboli Condition on Discharge: Good Activity: Resume your previous activity Non-emergency contact: Primary Care Provider and Night Stocker Call non-emergency contact if: you have any medication questions, your symptoms worsen, your pain is not controlled and you have a fever Follow-up/Referrals: Juan Jose Beltran MD [Physician] - Chencho Gamboa DO [Primary Care Provider] - Diet: Heart Healthy and Low Sodium (2gm) Addtl Attending Provider Instructions: Mr. Levine, It was our pleasure to care for you at [facility] from 09/06/20 to 09/08/20. You presented to the hospital after you were informed that you had blood clots in your lungs as an incidental finding on routine abdominal imaging to evaluate your known abdominal aortic aneurysm. In the hospital, you were started on Heparin, an IV anticoagulant (a medication to prevent your blood from clotting). Fortunately, you are feeling well and not displaying any signs or symptoms of these blood clots. I feel that you are stable and safe to go home. Because you have these blood clots, you will need to stay on an anticoagulant, but this does not need to be IV - it can be an oral medication. The oral anticoagulant that you will be on is called Xarelto (rivaroxaban). You will take Xarelto in the following regimen: - Xarelto 15mg by mouth twice a day for 21 days - After 21 days, you will switch to Xarelto 20mg by mouth once a day for 6 months - The plan would then be to take Xarelto 10mg by mouth once daily for an additional 6-12 months. - You should talk to your primary care doctor and/or weight reduction specialist about this new medication and regimen. As I discussed with you, since you are being started on this new anticoagulation medication, we will be adjusting some of your heart medications. You should STOP taking the Plavix (clopidogrel). CONTINUE the Aspirin 81mg by mouth daily. While in the hospital, we also performed an ultrasound of your heart. As we discussed, your heart is not pumping/squeezing the blood as effectively as a normal heart (your ejection fraction is 30-35%). This does not appear to be significantly changed from your last heart ultrasound, however, you should follow up with your doctors for this problem. Also, as we discussed, you should make sure to watch out for signs of acute heart failure including sudden weight gain, increased swelling/fluid in your legs, or shortness of breath - call your doctor or go to the emergency room if you develop any of these symptoms. Avoid eating too much salt - you should limit your salt intake to no more than 1,200 mg per day. Please follow up with your primary care physician, Dr. Gamboa in 1 week. You should also make sure to keep your cardiology appointment as scheduled on 09/19/20 at 1:30pm with Dr. Beltran. Please call your primary care doctor or your weight reduction specialist if you have any questions or concerns. Pending Studies at Discharge: No Stand-Alone Forms: [facility], Smoking Cess[facility] Medications and DC Order Prescriptions: New Xarelto 15 mg tablet 15 mg PO BID 21 Days Qty: 42 RF: 0 Continued aspirin 81 mg tablet,delayed release (DR/EC) 81 mg PO DAILY Qty: 90 RF: 3 mecobalamin (vitamin B12) 1,000 mcg tablet,disintegrating 1,000 mcg SL DAILY Qty: 30 RF: 0 atorvastatin [Lipitor] 80 mg tablet 80 mg PO DAILY Qty: 90 RF: 3 isosorbide mononitrate 60 mg tablet extended release 24 hr 90 mg PO DAILY Qty: 135 RF: 3 levothyroxine [Synthroid] 25 mcg tablet 25 mcg PO DAILY Qty: 90 RF: 3 lisinopril 20 mg tablet 20 mg PO DAILY Qty: 90 RF: 3 pantoprazole 20 mg tablet,delayed release (DR/EC) 20 mg PO DAILY Qty: 90 RF: 3 metoprolol succinate 100 mg tablet extended release 24 hr See Rx Instructions PO .COMPLEX Qty: 135 RF: 3 nitroglycerin 0.4 mg tablet, sublingual 0.4 mg SL Q5M PRN (Reason: chest pain) Qty: 30 RF: 2 tamsulosin 0.4 mg capsule 0.4 mg PO DAILY Qty: 90 RF: 3 finasteride 5 mg tablet 5 mg PO DAILY Qty: 90 RF: 3 azelastine 137 mcg (0.1 %) aerosol,spray 2 sprays INTNAS ONCE PRN (Reason: allergies) RF: 0 triamcinolone acetonide 0.1 % ointment 1 appln TOP BID PRN (Reason: Rash) RF: 0 umczyrtps-uaaxkptn-gjvuiwksqt [Stalevo 150] 37.5-150-200 mg tablet 1 tab PO .COMPLEX 90 Days Qty: 450 RF: 1 Discontinued clopidogrel 75 mg tablet 75 mg PO .COMPLEX Qty: 45 RF: 3 Discharge Orders: Discharge Order (Routine); Ordered 09/08/20 Ordered By: Althea Gonsalves/Other Patient Handouts: Pulmonary Embolism Admission Data Admit Date/Time: 09/06/20 21:27 Attending Provider: Desmond Urban Admit Provider: Raphael Spencer I. Primary Care Provider: Chencho Gamboa Other Providers: Siva Cox Other Interventions: Discharge Summary Assessment (RN) Last Done: 09/08/20 15:17 Supervising Physician Co-Signing Physician Notes Attending attestation Pt seen and examined in concert with Dr. Song. In agreement with the documented findings as noted in the resident documentation with any exceptions or additions as noted here. 75 y/o male h/o HTN, CAD w/ cardiomyopathy (35%), severe SPENSER p/w PE on imaging Today, patient feels at baseline without shortness of breath, lightheadedness, chest pain or fatigue On examination, S1/S2 nl RRR no MCG. CTAB. Abd NT/ND BS+ve Pulmonary embolism - transitioned from heparin drip to Xarelto. In light of AC, would d/c Plavix from [facility] Else see resident documentation as noted. Resident Activity Tracking Resident Involvement: Resident Care Provided Care Provided: Adult Hospital Medicine
[2020-09-12 09:12] LABS: Anti Cardiolipin Ab IgG <14 GPL; Anti Cardiolipin Ab IgM <12 MPL; Anti-Thrombin III Activity 122 % normal (80-135); B2 Glycoprotein IgG <9 SGU (<=20); B2 Glycoprotein IgM <9 SMU (<=20); PTT LA Screen 183 sec (<=40); Protein S Functional(Activity) 87 % (70-150)
[2020-09-12 14:21] LABS: Lupus Hex Phase (Rflxdonotord) Negative (Negative)
== END 2020-09-08 15:50 | disposition home or self-care (01) ==
LOC: 2S 17:37 → ED 17:37 → SUATTDRO 21:27 → 2S 23:16